=== PATIENT | female | born 1975 | race Two or more races ===

== ENCOUNTER 2020-03-24 11:27 | Inpatient (IN) | payer MEDICAID ==
[~2020-03-24] VITALS: Ht 147.3 cm; Wt 63.0 kg
[2020-03-24 11:36] VITALS: BP 114/72
[2020-03-24] MEDS ORDERED: Morphine Sulfate 4mg/ml Inj (IV USE ONLY) IVP ONE ×2 (11:45→14:00)
[2020-03-24] MEDS ORDERED: Metoclopramide 10mg/2ml Inj IVP ONE (11:45)
[2020-03-24] MEDS ORDERED: DiphenhydrAMINE 50mg/ml Inj IVP ONE (11:45)
[2020-03-24 12:06] LABS: BASOPHILS % (AUTO) 0.6 % (0.0-2.0); EOSINOPHILS % (AUTO) 0.3 % (0.0-3.0); HEMATOCRIT 48.6 % (37.0-47.0); HEMOGLOBIN 16.7 G/DL (12.0-16.0); LYMPHOCYTES % (AUTO) 33.1 % (20.0-45.0); MEAN CORPUSCULAR VOLUME 98 FL (80-99); MONOCYTES % (AUTO) 6.2 % (1.0-10.0); NEUTROPHILS % (AUTO) 59.8 % (45.0-75.0); PLATELET COUNT 228 K/UL (150-450); RED BLOOD COUNT 4.98 M/UL (4.20-5.40); WHITE BLOOD COUNT 11.4 K/UL (4.8-10.8)
[2020-03-24 12:21] LABS: ANION GAP 10 mmol/L (5-15); BLOOD UREA NITROGEN 14 mg/dL (7-18); CALCIUM 9.5 MG/DL (8.5-10.1); CARBON DIOXIDE 25 MMOL/L (21-32); CHLORIDE 102 MMOL/L (98-107); CREATININE 0.9 MG/DL (0.55-1.30); POTASSIUM 3.4 MMOL/L (3.5-5.1); SODIUM 137 MMOL/L (136-145)
[2020-03-24 12:32] LABS: ALANINE AMINOTRANSFERASE 166 U/L (12-78); ALBUMIN 4.3 G/DL (3.4-5.0); ALBUMIN/GLOBULIN RATIO 1.2 (1.0-2.7); ALKALINE PHOSPHATASE 135 U/L (46-116); ASPARTATE AMINO TRANSFERASE 136 U/L (15-37); BILIRUBIN,TOTAL 1.2 MG/DL (0.2-1.0)
[2020-03-24 12:37] LABS: BILIRUBIN,DIRECT 0.6 MG/DL (0.0-0.3)
[2020-03-24] MEDS ORDERED: Cefepime HCl 1 GM in D5W 55 ML IVPB ONE (14:00)
--- NOTE | 2020-03-24 14:05 | Emergency Room Report ---
History of Present Illness General Chief Complaint: Abdominal Pain Source: Patient Present Illness HPI Patient presents with severe right upper quadrant pain radiating to her back. She states she had this problem before and was her gallbladder. She has been nauseated and vomiting. She has no pain medication at home or medicine for nausea. She denies any fevers or chills. The pain is 10/10 at this time and constant. The pain was not as severe during the prior presentation. Social isolating. She denies exposure to Covid positive contacts. No sore throat, chest pain, palpitations, diarrhea, dysuria, shortness of breath, joint pain, rashes, depression, anxiety, visual changes, dizziness, headache. 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 Patient History Past Medical History: see triage record, other - Possible gallbladder disease Social History: Denies: smoking, alcohol use, drug use Social History Narrative From home Now: No Reviewed Nursing Documentation: PMH: Agreed; PSxH: Agreed Nursing Documentation-PMH Past Medical History: No History, Except For Hx Gastrointestinal Problems: Yes - gall bladder Review of Systems All Other Systems: negative except mentioned in HPI Physical Exam Vital Signs Date Time Temp Pulse Resp B/P (MAP) Pulse Ox O2 Delivery O2 Flow Rate FiO2 03/24/20 11:30 97.5 98 18 114/72 (86) 99 Room Air General Appearance: well appearing, GCS 15, non-toxic, moderate distress - Due to pain Eyes: bilateral eye normal inspection, bilateral eye PERRL, bilateral eye EOMI ENT: moist mucus membranes Neck: full range of motion, supple Respiratory: lungs clear, normal breath sounds Cardiovascular #1: regular rate, rhythm, no edema Cardiovascular #2: 2+ radial (R) Gastrointestinal: no rebound, guarding, tenderness - Epigastric and right upper quadrant, overweight Genitourinary: no CVA tenderness Musculoskeletal: back normal, digits/nails normal, no calf tenderness Neurologic: alert, oriented x3, grossly normal Psychiatric: other - In pain Skin: no rash, warm/dry Medical Decision Making Diagnostic Impression: Primary Impression: Acute pancreatitis Qualified Codes: K85.90 - Acute pancreatitis without necrosis or infection, unspecified Additional Impressions: Elevated LFTs Leukocytosis Qualified Codes: D72.828 - Other elevated white blood cell count ER Course Patient presents with right upper quadrant pain with history of gallstones. Differential includes gallstone pancreatitis, cholecystitis, cholangitis, hepatitis peptic ulcer disease amongst others. Patient evaluated with ultrasou nd and labs. Patient treated with IV hydration, Pepcid, Reglan and Benadryl. Repeat exams indicated. Suspicion for COVID-19 low. CBC with elevated white count. Elevated transaminases and bilirubin. Lipase greater than 2000. Ultrasound with peripancreatic free fluid with multiple large gallstones with sludge. Patient improved but still with pain. Cefepime and Flagyl begun. In addition morphine repeated. Contact admitting physician. Patient examined by Dr. Owens. Patient improved. Still etiology of pancreatitis needs to be determined and due to the inflammation of the pancreas this needs to be followed. Laboratory Tests Test 03/24/20 11:45 03/24/20 14:15 White Blood Count 11.4 K/UL (4.8-10.8) H Red Blood Count 4.98 M/UL (4.20-5.40) Hemoglobin 16.7 G/DL (12.0-16.0) H Hematocrit 48.6 % (37.0-47.0) H Mean Corpuscular Volume 98 FL (80-99) Mean Corpuscular Hemoglobin 33.5 PG (27.0-31.0) H Mean Corpuscular Hemoglobin Concent 34.3 G/DL (32.0-36.0) Red Cell Distribution Width 11.0 % (11.6-14.8) L Platelet Count 228 K/UL (150-450) Mean Platelet Volume 9.3 FL (6.5-10.1) Neutrophils (%) (Auto) 59.8 % (45.0-75.0) Lymphocytes (%) (Auto) 33.1 % (20.0-45.0) Monocytes (%) (Auto) 6.2 % (1.0-10.0) Eosinophils (%) (Auto) 0.3 % (0.0-3.0) Basophils (%) (Auto) 0.6 % (0.0-2.0) Prothrombin Time 11.2 SEC (9.30-11.50) Prothrombin Time INR 1.0 (0.9-1.1) Activated Partial Thromboplast Time 26 SEC (23-33) Sodium Level 137 MMOL/L (136-145) Potassium Level 3.4 MMOL/L (3.5-5.1) L Chloride Level 102 MMOL/L (98-107) Carbon Dioxide Level 25 MMOL/L (21-32) Anion Gap 10 mmol/L (5-15) Blood Urea Nitrogen 14 mg/dL (7-18) Creatinine 0.9 MG/DL (0.55-1.30) Estimated Glomerular Filtration Rate > 60 mL/min (>60) Glucose Level 113 MG/DL (74-106) H Calcium Level 9.5 MG/DL (8.5-10.1) Total Bilirubin 1.2 MG/DL (0.2-1.0) H Direct Bilirubin 0.6 MG/DL (0.0-0.3) H Aspartate Amino Transferase (AST) 136 U/L (15-37) H Alanine Aminotransferase (ALT) 166 U/L (12-78) H Alkaline Phosphatase 135 U/L (46-116) H Total Protein 7.9 G/DL (6.4-8.2) Albumin 4.3 G/DL (3.4-5.0) Globulin 3.6 g/dL Albumin/Globulin Ratio 1.2 (1.0-2.7) Lipase > 2000 U/L (73-393) H Human Chorionic Gonadotropin, Qual Negative (NEGATIVE) Urine Color Yellow Urine Appearance Clear Urine pH 5 (4.5-8.0) Urine Specific [place] 1.020 (1.005-1.035) Urine Protein 1+ (NEGATIVE) H Urine Glucose (UA) Negative (NEGATIVE) Urine Ketones Negative (NEGATIVE) Urine Blood Negative (NEGATIVE) Urine Nitrite Negative (NEGATIVE) Urine Bilirubin Negative (NEGATIVE) Urine Urobilinogen Normal MG/DL (0.0-1.0) Urine Leukocyte Esterase Negative (NEGATIVE) Urine RBC 0 /HPF (0 - 2) Urine WBC 0-2 /HPF (0 - 2) Urine Squamous Epithelial Cells Few /LPF (NONE/OCC) Urine Bacteria Few /HPF (NONE) Urine Mucus Few /LPF (NONE/OCC) H Rhythm Strip Diag. Results EP Interpretation: yes Rhythm: NSR, no PVC's, no ectopy CT/MRI/US Diagnostic Results CT/MRI/US Diagnostic Results : Imaging Test Ordered: Ultrasound right upper quadrant Impression Peripancreatic fluid, gallstones with large gallstones and fluid and sludge. Last Vital Signs Date Time Temp Pulse Resp B/P (MAP) Pulse Ox O2 Delivery O2 Flow Rate FiO2 03/24/20 16:39 Room Air 03/24/20 16:30 97.8 89 16 130/85 (100) 99 Status: improved Disposition: ADMITTED INPATIENT Condition: Serious Scripts No Active Prescriptions or Reported Meds Referrals: NOT CHOSEN IPA/,REFERRING (PCP) Wilman Rosado MD Mar 24, 2020 14:05
[2020-03-24 14:44] LABS: APPEARANCE,URINE CLEAR; BILIRUBIN, URINE NEGATIVE (NEGATIVE); GLUCOSE, URINE (UA) NEGATIVE (NEGATIVE); KETONES,URINE NEGATIVE (NEGATIVE); LEUKOCYTE ESTERASE ,URINE NEGATIVE (NEGATIVE); NITRITE,URINE NEGATIVE (NEGATIVE); PH,URINE 5 (4.5-8.0); PROTEIN,URINE 1+ (NEGATIVE); UROBILINOGEN,URINE NORMAL MG/DL (0.0-1.0)
[2020-03-24 14:51] LABS: COLOR,URINE YELLOW
[2020-03-24 16:30] VITALS: BP 130/85
--- NOTE | 2020-03-24 16:31 | Consultation ---
History of Present Illness General Date patient seen: Mar 24, 2020 Reason for Hospitalization: Abdominal Pain Present Illness HPI This is a 44-year-old female presents [facility] complaining of abdominal pain with radiation to the back. States epigastric nominal pain ongo ing for the last 24 hours and worsening. States nausea and emesis nonbloody. States known history of symptomatic cholelithiasis. In ED identified to have leukocytosis abnormal LFTs and elevated lipase. Surgery called to evaluate assist with care. Patient seen, patient evaluate, chart reviewed. Allergies: Coded Allergies: No Known Allergies (Unverified , 03/24/20) COVID-19 Screening Contact w/high risk pt: No Experienced COVID-19 symptoms?: No Medication History No Active Prescriptions or Reported Meds Patient History History Provided By: Patient, Medical Record, PMD Healthcare decision maker N Resuscitation status Advanced Directive on File Past Medical/Surgical History Past Medical/Surgical History: (1) Acute pancreatitis (2) Leukocytosis (3) Elevated LFTs Review of Systems Review of Symptoms General ROS: no weight loss or fever Psychological ROS: no depression or mood changes, no memory loss Ophthalmic ROS: no visual changes or eye irritation ENT ROS: no nasal congestion, hearing loss, dizziness Allergy and Immunology ROS: no allergic symptoms or urticaria Hematological and Lymphatic ROS: no swollen glands, unusual bleeding or bruising Endocrine ROS: no polyuria, polydipsia, weight changes, temperature intolerance Respiratory ROS: no cough, shortness of breath, or wheezing Cardiovascular ROS: no chest pain or dyspnea on exertion Gastrointestinal ROS: + abdominal pain, bright red blood in stool. Musculoskeletal ROS: no myalgias or arthralgias Neurological ROS: no TIA or stroke symptoms Dermatological ROS: no new or changing skin lesions, rashes or pruritis Physical Exam Physical Exam General appearance: alert, cooperative, no distress, appears stated age Head: Normocephalic, without obvious abnormality, atraumatic Eyes: conjunctivae/corneas clear. PERRL, EOM's intact. Fundi benign Throat: Lips, mucosa, and tongue normal. Teeth and gums normal Neck: supple, symmetrical, trachea midline, no adenopathy, thyroid: not enlarged, symmetric, no tenderness/mass/nodules, no carotid bruit and no JVD Lungs: clear to auscultation bilaterally Heart: regular rate and rhythm, S1, S2 normal, no murmur, click, rub or gallop Abdomen: soft, +tender. Bowel sounds normal. No masses, no organomegaly Extremities: extremities normal, atraumatic, no cyanosis or edema Pulses: 2+ and symmetric Skin: Skin color, texture, turgor normal. No rashes or lesions Neurologic: Grossly normal Last 24 Hour Vital Signs Date Time Temp Pulse Resp B/P (MAP) Pulse Ox O2 Delivery O2 Flow Rate FiO2 03/24/20 16:03 98.0 78 18 120/70 98 Room Air 03/24/20 11:36 97.5 98 18 114/72 99 Room Air 03/24/20 11:36 98 18 Room Air 03/24/20 11:30 97.5 98 18 114/72 (86) 99 Room Air Laboratory Tests Test 03/24/20 11:45 03/24/20 14:15 White Blood Count 11.4 K/UL (4.8-10.8) H Red Blood Count 4.98 M/UL (4.20-5.40) Hemoglobin 16.7 G/DL (12.0-16.0) H Hematocrit 48.6 % (37.0-47.0) H Mean Corpuscular Volume 98 FL (80-99) Mean Corpuscular Hemoglobin 33.5 PG (27.0-31.0) H Mean Corpuscular Hemoglobin Concent 34.3 G/DL (32.0-36.0) Red Cell Distribution Width 11.0 % (11.6-14.8) L Platelet Count 228 K/UL (150-450) Mean Platelet Volume 9.3 FL (6.5-10.1) Neutrophils (%) (Auto) 59.8 % (45.0-75.0) Lymphocytes (%) (Auto) 33.1 % (20.0-45.0) Monocytes (%) (Auto) 6.2 % (1.0-10.0) Eosinophils (%) (Auto) 0.3 % (0.0-3.0) Basophils (%) (Auto) 0.6 % (0.0-2.0) Prothrombin Time 11.2 SEC (9.30-11.50) Prothromb Time International Ratio 1.0 (0.9-1.1) Activated Partial Thromboplast Time 26 SEC (23-33) Sodium Level 137 MMOL/L (136-145) Potassium Level 3.4 MMOL/L (3.5-5.1) L Chloride Level 102 MMOL/L (98-107) Carbon Dioxide Level 25 MMOL/L (21-32) Anion Gap 10 mmol/L (5-15) Blood Urea Nitrogen 14 mg/dL (7-18) Creatinine 0.9 MG/DL (0.55-1.30) Estimat Glomerular Filtration Rate > 60 mL/min (>60) Glucose Level 113 MG/DL (74-106) H Calcium Level 9.5 MG/DL (8.5-10.1) Total Bilirubin 1.2 MG/DL (0.2-1.0) H Direct Bilirubin 0.6 MG/DL (0.0-0.3) H Aspartate Amino Transf (AST/SGOT) 136 U/L (15-37) H Alanine Aminotransferase (ALT/SGPT) 166 U/L (12-78) H Alkaline Phosphatase 135 U/L (46-116) H Total Protein 7.9 G/DL (6.4-8.2) Albumin 4.3 G/DL (3.4-5.0) Globulin 3.6 g/dL Albumin/Globulin Ratio 1.2 (1.0-2.7) Lipase > 2000 U/L (73-393) H Human Chorionic Gonadotropin, Qual Negative (NEGATIVE) Urine Color Yellow Urine Appearance Clear Urine pH 5 (4.5-8.0) Urine Specific [place] 1.020 (1.005-1.035) Urine Protein 1+ (NEGATIVE) H Urine Glucose (UA) Negative (NEGATIVE) Urine Ketones Negative (NEGATIVE) Urine Blood Negative (NEGATIVE) Urine Nitrite Negative (NEGATIVE) Urine Bilirubin Negative (NEGATIVE) Urine Urobilinogen Normal MG/DL (0.0-1.0) Urine Leukocyte Esterase Negative (NEGATIVE) Urine RBC 0 /HPF (0 - 2) Urine WBC 0-2 /HPF (0 - 2) Urine Squamous Epithelial Cells Few /LPF (NONE/OCC) Urine Bacteria Few /HPF (NONE) Urine Mucus Few /LPF (NONE/OCC) H Height (Feet): 4 Height (Inches): 11.00 Weight (Pounds): 113 Medications Current Medications Medications (Trade) Dose Ordered Sig/Elizabeth Route PRN Reason Start Time Stop Time Status Last Admin Dose Admin Morphine Sulfate (Morphine Sulfate) 4 mg Q4H PRN IVP For Pain 03/24/20 16:00 03/31/20 15:59 Potassium Chloride/Sodium Chloride 1,000 ml @ 125 mls/hr Q8H IV 03/24/20 17:00 04/23/20 16:59 Assessment/Plan Problem List: (1) Acute pancreatitis Assessment & Plan: 44-year-old female with acute pancreatitis elevated LFTs history of cholelithiasis. Likely acute gallstone pancreatitis. Afebrile hemodynamic stable labs noted. Consideration of possible choledocholithiasis Tender on abdominal examination epigastric region Recommend admission N.p.o. IV fluids IV antibiotics given leukocytosis and potential acute cholecystitis along with acute gallstone pancreatitis Abdominal ultrasound MRCP given elevated bilirubin and LFTs Trend labs May require cholecystectomy Thank you will follow the recommendations ICD Codes: K85.90 - Acute pancreatitis without necrosis or infection, unspecified SNOMED: 515561630, [id number] Qualifiers: Qualified Codes: K85.90 - Acute pancreatitis without necrosis or infection, unspecified (2) Leukocytosis ICD Codes: D72.829 - Elevated white blood cell count, unspecified SNOMED: [id number], [id number] Qualifiers: Qualified Codes: D72.828 - Other elevated white blood cell count (3) Elevated LFTs ICD Codes: R79.89 - Other specified abnormal findings of blood chemistry SNOMED: [id number], [id number] Pedro Luis Owens Mar 24, 2020 16:31
[2020-03-24] MEDS: NS w/KCl 20mEq 1000ml 1,000 ML IV SCH (17:12)
[2020-03-24] MEDS: Morphine Sulfate 4mg/ml Inj (IV USE ONLY) IVP PRN ×2 (17:14→21:25)
--- NOTE | 2020-03-24 17:30 | History and Physical Report ---
DATE OF ADMISSION: 03/24/2020 REASON FOR ADMISSION: Abdominal pain. HISTORY OF PRESENT ILLNESS: This 44-year-old female has a history of cholelithiasis. She has had episodes of pain in the past, but not of significant severity. She presented with midepigastric and right upper quadrant abdominal pain for the past 24 hours, which seems to be worsening and radiating to her back. She was seen in the emergency room and noted to have abnormal laboratory studies which will be described below. She has not been able to eat due to nausea and vomiting of nonbloody emesis and significant abdominal pain. PAST MEDICAL HISTORY: Otherwise unremarkable. MEDICATIONS: None. ALLERGIES: None. SOCIAL HISTORY: Denies smoking, alcohol, or substance abuse. FAMILY HISTORY: Noncontributory. REVIEW OF SYSTEMS: No known exposure to COVID-19 or symptoms suggestive of infection. No fevers or chills. No loss of vision or hearing. No history of kidney stones. No history of seizures. No history of diabetes or thyroid impairment. No elevated cholesterol parameters. No history of hypertension or valvular heart disease. No irregular heartbeat. No history of asthma or abnormal blood clotting. PHYSICAL EXAMINATION: GENERAL: Awake and alert, in moderate distress due to abdominal pain. VITAL SIGNS: Blood pressure 120/70, pulse 78, respirations 18, and afebrile. Oxygen saturation on room air 98%. HEENT: Conjunctivae pink. Oropharynx clear. NECK: Supple. Jugular venous pressure normal. LUNGS: Clear. CARDIAC: Regular rhythm and rate. Normal S1, S2 with no murmur, rub, or gallop. ABDOMEN: Soft. Tenderness noted in the midepigastric region. No guarding or rebound. No organomegaly. SKIN: Without rash or discoloration/ecchymosis. EXTREMITIES: No clubbing, cyanosis, calf tenderness, or edema. NEUROLOGIC: Nonfocal. LABORATORY DATA: White count 11.4, hemoglobin 16.7. INR is 1.0. Sodium 137, potassium 3.4, bicarb 25, BUN 14, creatinine 0.9. Albumin 4.3. AST and ALT is 136/166 with alkaline phosphatase of 135. Beta HCG negative. Urinalysis, no active sediment. Lipase is over 2000. Bilirubin slightly elevated at 1.2. IMAGING STUDIES: Ultrasound of the abdomen is notable for peripancreatic fluid, gallstones with sludge. IMPRESSION: 1. Acute pancreatitis. 2. Cholelithiasis and possible cholecystitis. 3. Leukocytosis. 4. Hypokalemia. 5. Mild hypovolemia and dehydration. 6. Transaminitis. 7. Hyperbilirubinemia. PLAN: 1. NPO. 2. Pain control. 3. IV fluid hydration. 4. Empiric antimicrobials. 5. Surgical evaluation. 6. Serial lab studies. 7. DVT prophylaxis. 8. IV fluid hydration with potassium supplement. Wilman Benjamin M.D. DR: YOSEF JOB#: [id number] CC:
--- NOTE | 2020-03-24 18:01 | Diagnostic Imaging Report ---
Indication: Abdominal pain, abnormal lipase Technique: Pedersen-scale and duplex images of the upper abdomen were obtained Comparison: none Findings: Gallbladder demonstrates gallstones and sludge. No wall thickening nor pericholecystic fluid. Sonographic Ray's sign is negative. Common bile duct measures 6 mm in diameter. No intrahepatic biliary ductal dilatation. Liver demonstrates normal echogenicity, no focal abnormality. Portal vein and hepatic veins are patent. The pancreas is prominent. It demonstrates some adjacent fluid. No focal abnormality. Spleen is unremarkable. Left kidney measures 9.2 cm in length. Right kidney measures 9.3 cm length. Both kidneys demonstrate normal echogenicity. There is no hydronephrosis. No focal abnormality . Non-aneurysmal abdominal aorta . Impression: Prominent pancreas, peripancreatic free fluid, likely related to laboratory evidence of acute pancreatitis Cholelithiasis and gallbladder sludge. Negative for dilated bile ducts. Left upper quadrant perinephric fluid. This is nonspecific, likely related to the pancreatic abnormality
[2020-03-24 20:00] VITALS: BP 128/85
[2020-03-24] MEDS: cefOXitin Sod 1 GM in D5W 55 ML IVPB SCH (21:17)
[2020-03-25] VITALS: BP 108/73
[2020-03-25] MEDS: NS w/KCl 20mEq 1000ml 1,000 ML IV SCH ×3 (01:14→17:58)
[2020-03-25 04:00] VITALS: BP 130/85
[2020-03-25] MEDS: Morphine Sulfate 4mg/ml Inj (IV USE ONLY) IVP PRN ×2 (04:45→11:55)
[2020-03-25] MEDS: cefOXitin Sod 1 GM in D5W 55 ML IVPB SCH ×3 (05:43→22:49)
[2020-03-25] MEDS: Heparin 5000 units/ml inj SUBQ SCH ×3 (05:44→22:51)
[2020-03-25 07:13] LABS: BASOPHILS % (AUTO) 0.4 % (0.0-2.0); EOSINOPHILS % (AUTO) 0.2 % (0.0-3.0); HEMATOCRIT 43.5 % (37.0-47.0); HEMOGLOBIN 14.7 G/DL (12.0-16.0); MEAN CORPUSCULAR VOLUME 98 FL (80-99); MONOCYTES % (AUTO) 9.3 % (1.0-10.0); NEUTROPHILS % (AUTO) 67.2 % (45.0-75.0); PLATELET COUNT 200 K/UL (150-450); RED BLOOD COUNT 4.43 M/UL (4.20-5.40)
[2020-03-25 07:34] LABS: ALANINE AMINOTRANSFERASE 107 U/L (12-78); ALBUMIN 2.9 G/DL (3.4-5.0); ALKALINE PHOSPHATASE 93 U/L (46-116); ASPARTATE AMINO TRANSFERASE 55 U/L (15-37); BLOOD UREA NITROGEN 9 mg/dL (7-18); CARBON DIOXIDE 23 MMOL/L (21-32); CHLORIDE 107 MMOL/L (98-107); CHOLESTEROL 149 MG/DL (< 200); CREATININE 0.8 MG/DL (0.55-1.30); HDL CHOLESTEROL 42 MG/DL (40-60); SODIUM 137 MMOL/L (136-145); TRIGLYCERIDES 72 MG/DL (30-150)
[2020-03-25 07:56] LABS: BILIRUBIN,DIRECT 1.9 MG/DL (0.0-0.3)
[2020-03-25 08:00] VITALS: BP 121/80
[2020-03-25 08:00] LABS: AMYLASE 1729 U/L (25-115)
[2020-03-25] MEDS: Morphine Sulfate 2mg/ml Inj(IV/IM USE ONLY) IVP PRN (08:16)
[2020-03-25 12:00] VITALS: BP 118/80
--- NOTE | 2020-03-25 13:34 | Surgery Progress Note ---
Surgery Progress Note Subjective Symptoms: pain same, voiding well, passing flatus Additional Comments labs noted still with pain US reviewed will need MRCP and potentially ERCP GI eval Objective Last 24 Hour Vital Signs Date Time Temp Pulse Resp B/P (MAP) Pulse Ox O2 Delivery O2 Flow Rate FiO2 03/25/20 12:00 98.3 75 16 118/80 (93) 98 03/25/20 09:00 Room Air 03/25/20 08:00 98.4 79 16 121/80 (94) 97 03/25/20 04:00 98.2 74 17 130/85 (100) 98 03/25/20 00:00 97.8 85 15 108/73 (85) 98 03/24/20 20:15 Room Air 03/24/20 20:00 98.4 91 16 128/85 (99) 98 03/24/20 16:39 Room Air 03/24/20 16:30 97.8 89 16 130/85 (100) 99 03/24/20 16:03 98.0 78 18 120/70 98 Room Air I&O Intake and Output 03/24/20 03/25/20 19:00 07:00 Intake Total 125 ml 1375 ml Output Total 0 ml Balance 125 ml 1375 ml Intake Oral 0 ml IV Total 125 ml 1375 ml Output Urine Total 0 ml # Voids 3 Cardiovascular: RSR Respiratory: clear Abdomen: soft, tenderness, present bowel sounds, non-distended Extremities: no edema, no tenderness, no cyanosis Laboratory Tests Test 03/24/20 14:15 03/25/20 05:10 Urine Color Yellow Urine Appearance Clear Urine pH 5 (4.5-8.0) Urine Specific [place] 1.020 (1.005-1.035) Urine Protein 1+ (NEGATIVE) H Urine Glucose (UA) Negative (NEGATIVE) Urine Ketones Negative (NEGATIVE) Urine Blood Negative (NEGATIVE) Urine Nitrite Negative (NEGATIVE) Urine Bilirubin Negative (NEGATIVE) Urine Urobilinogen Normal MG/DL (0.0-1.0) Urine Leukocyte Esterase Negative (NEGATIVE) Urine RBC 0 /HPF (0 - 2) Urine WBC 0-2 /HPF (0 - 2) Urine Squamous Epithelial Cells Few /LPF (NONE/OCC) Urine Bacteria Few /HPF (NONE) Urine Mucus Few /LPF (NONE/OCC) H White Blood Count 9.0 K/UL (4.8-10.8) Red Blood Count 4.43 M/UL (4.20-5.40) Hemoglobin 14.7 G/DL (12.0-16.0) Hematocrit 43.5 % (37.0-47.0) Mean Corpuscular Volume 98 FL (80-99) Mean Corpuscular Hemoglobin 33.2 PG (27.0-31.0) H Mean Corpuscular Hemoglobin Concent 33.9 G/DL (32.0-36.0) Red Cell Distribution Width 11.0 % (11.6-14.8) L Platelet Count 200 K/UL (150-450) Mean Platelet Volume 9.4 FL (6.5-10.1) Neutrophils (%) (Auto) 67.2 % (45.0-75.0) Lymphocytes (%) (Auto) 23.0 % (20.0-45.0) Monocytes (%) (Auto) 9.3 % (1.0-10.0) Eosinophils (%) (Auto) 0.2 % (0.0-3.0) Basophils (%) (Auto) 0.4 % (0.0-2.0) Erythrocyte Sedimentation Rate 13 MM/HR (0-20) Prothrombin Time 11.3 SEC (9.30-11.50) Prothromb Time International Ratio 1.0 (0.9-1.1) Activated Partial Thromboplast Time 29 SEC (23-33) Sodium Level 137 MMOL/L (136-145) Potassium Level 4.0 MMOL/L (3.5-5.1) Chloride Level 107 MMOL/L (98-107) Carbon Dioxide Level 23 MMOL/L (21-32) Blood Urea Nitrogen 9 mg/dL (7-18) Creatinine 0.8 MG/DL (0.55-1.30) Estimat Glomerular Filtration Rate > 60 mL/min (>60) Glucose Level 91 MG/DL (74-106) Calcium Level 8.0 MG/DL (8.5-10.1) L Total Bilirubin 3.0 MG/DL (0.2-1.0) H Direct Bilirubin 1.9 MG/DL (0.0-0.3) H Aspartate Amino Transf (AST/SGOT) 55 U/L (15-37) H Alanine Aminotransferase (ALT/SGPT) 107 U/L (12-78) H Alkaline Phosphatase 93 U/L (46-116) C-Reactive Protein, Quantitative 2.8 mg/dL (0.00-0.90) H Total Protein 5.7 G/DL (6.4-8.2) L Albumin 2.9 G/DL (3.4-5.0) L Globulin 2.8 g/dL Albumin/Globulin Ratio 1.0 (1.0-2.7) Triglycerides Level 72 MG/DL (30-150) Cholesterol Level 149 MG/DL (< 200) LDL Cholesterol 105 mg/dL (<100) H HDL Cholesterol 42 MG/DL (40-60) Cholesterol/HDL Ratio 3.5 (3.3-4.4) Amylase Level 1729 U/L (25-115) *H Lipase 8198 U/L (73-393) H Plan Problems: (1) Acute pancreatitis Assessment & Plan: 44-year-old female with acute pancreatitis elevated LFTs history of cholelithiasis. Likely acute gallstone pancreatitis. Afebrile hemodynamic stable labs noted. Consideration of possible choledocholithiasis Tender on abdominal examination epigastric region Recommend admission N.p.o. IV fluids IV antibiotics given leukocytosis and potential acute cholecystitis along with acute gallstone pancreatitis Abdominal ultrasound MRCP given elevated bilirubin and LFTs Trend labs May require cholecystectomy labs noted still with pain US reviewed will need MRCP and potentially ERCP GI eval cont bowel rest trend labs Thank you will follow the recommendations (2) Leukocytosis (3) Elevated LFTs Pedro Luis Owens Mar 25, 2020 13:34
[2020-03-25 16:00] VITALS: BP 141/78
--- NOTE | 2020-03-25 19:09 | Cardiology Progress Note ---
Subjective DATE OF SERVICE: Mar 25, 2020 Still with N/V/Abdominal pain No SOB Labs noted Objective Last 24 Hour Vital Signs Date Time Temp Pulse Resp B/P (MAP) Pulse Ox O2 Delivery O2 Flow Rate FiO2 03/25/20 16:00 97.5 83 16 141/78 (99) 98 03/25/20 12:00 98.3 75 16 118/80 (93) 98 03/25/20 09:00 Room Air 03/25/20 08:00 98.4 79 16 121/80 (94) 97 03/25/20 04:00 98.2 74 17 130/85 (100) 98 03/25/20 00:00 97.8 85 15 108/73 (85) 98 03/24/20 20:15 Room Air 03/24/20 20:00 98.4 91 16 128/85 (99) 98 HEENT: normal ENT inspection LUNGS: lungs clear bilaterally CARDIAC: regular rhythm ABDOMEN: normal bowel sounds, soft, distended, tender - Mid epigastric and upper quads EXTREMITIES: No edema Laboratory Tests Test 03/25/20 05:10 White Blood Count 9.0 K/UL (4.8-10.8) Red Blood Count 4.43 M/UL (4.20-5.40) Hemoglobin 14.7 G/DL (12.0-16.0) Hematocrit 43.5 % (37.0-47.0) Mean Corpuscular Volume 98 FL (80-99) Mean Corpuscular Hemoglobin 33.2 PG (27.0-31.0) H Mean Corpuscular Hemoglobin Concent 33.9 G/DL (32.0-36.0) Red Cell Distribution Width 11.0 % (11.6-14.8) L Platelet Count 200 K/UL (150-450) Mean Platelet Volume 9.4 FL (6.5-10.1) Neutrophils (%) (Auto) 67.2 % (45.0-75.0) Lymphocytes (%) (Auto) 23.0 % (20.0-45.0) Monocytes (%) (Auto) 9.3 % (1.0-10.0) Eosinophils (%) (Auto) 0.2 % (0.0-3.0) Basophils (%) (Auto) 0.4 % (0.0-2.0) Erythrocyte Sedimentation Rate 13 MM/HR (0-20) Prothrombin Time 11.3 SEC (9.30-11.50) Prothromb Time International Ratio 1.0 (0.9-1.1) Activated Partial Thromboplast Time 29 SEC (23-33) Sodium Level 137 MMOL/L (136-145) Potassium Level 4.0 MMOL/L (3.5-5.1) Chloride Level 107 MMOL/L (98-107) Carbon Dioxide Level 23 MMOL/L (21-32) Blood Urea Nitrogen 9 mg/dL (7-18) Creatinine 0.8 MG/DL (0.55-1.30) Estimat Glomerular Filtration Rate > 60 mL/min (>60) Glucose Level 91 MG/DL (74-106) Calcium Level 8.0 MG/DL (8.5-10.1) L Total Bilirubin 3.0 MG/DL (0.2-1.0) H Direct Bilirubin 1.9 MG/DL (0.0-0.3) H Aspartate Amino Transf (AST/SGOT) 55 U/L (15-37) H Alanine Aminotransferase (ALT/SGPT) 107 U/L (12-78) H Alkaline Phosphatase 93 U/L (46-116) C-Reactive Protein, Quantitative 2.8 mg/dL (0.00-0.90) H Total Protein 5.7 G/DL (6.4-8.2) L Albumin 2.9 G/DL (3.4-5.0) L Globulin 2.8 g/dL Albumin/Globulin Ratio 1.0 (1.0-2.7) Triglycerides Level 72 MG/DL (30-150) Cholesterol Level 149 MG/DL (< 200) LDL Cholesterol 105 mg/dL (<100) H HDL Cholesterol 42 MG/DL (40-60) Cholesterol/HDL Ratio 3.5 (3.3-4.4) Amylase Level 1729 U/L (25-115) *H Lipase 8198 U/L (73-393) H Assessment/Plan Assessment/Plan Acute biliary pancreatitis Dehydration/hypovolemia Transaminitis Hyperbilirubinemia Cholelithiasis NPO Empiric antibiotics Pain control IVF hydration GI and Surgery consults DVT propyl Wilman Benjamin MD Mar 25, 2020 19:09
[2020-03-26] MEDS: NS w/KCl 20mEq 1000ml 1,000 ML IV SCH (02:34)
[2020-03-26 04:00] VITALS: BP 110/62
[2020-03-26] MEDS: cefOXitin Sod 1 GM in D5W 55 ML IVPB SCH ×3 (06:14→21:06)
[2020-03-26] MEDS: Heparin 5000 units/ml inj SUBQ SCH ×3 (06:22→21:18)
[2020-03-26 06:49] LABS: BASOPHILS % (AUTO) 0.6 % (0.0-2.0); EOSINOPHILS % (AUTO) 0.3 % (0.0-3.0); HEMATOCRIT 43.9 % (37.0-47.0); HEMOGLOBIN 14.7 G/DL (12.0-16.0); LYMPHOCYTES % (AUTO) 18.7 % (20.0-45.0); MEAN CORPUSCULAR VOLUME 99 FL (80-99); MONOCYTES % (AUTO) 7.9 % (1.0-10.0); NEUTROPHILS % (AUTO) 72.5 % (45.0-75.0); PLATELET COUNT 204 K/UL (150-450); RED BLOOD COUNT 4.44 M/UL (4.20-5.40); RED CELL DISTRIBUTION WIDTH 11.2 % (11.6-14.8); WHITE BLOOD COUNT 9.9 K/UL (4.8-10.8)
[2020-03-26 07:19] LABS: ALANINE AMINOTRANSFERASE 84 U/L (12-78); ALBUMIN 3.1 G/DL (3.4-5.0); ALBUMIN/GLOBULIN RATIO 0.8 (1.0-2.7); ALKALINE PHOSPHATASE 94 U/L (46-116); ANION GAP 11 mmol/L (5-15); ASPARTATE AMINO TRANSFERASE 31 U/L (15-37); BILIRUBIN,TOTAL 1.1 MG/DL (0.2-1.0); BLOOD UREA NITROGEN 9 mg/dL (7-18); CALCIUM 8.6 MG/DL (8.5-10.1); CARBON DIOXIDE 21 MMOL/L (21-32); CHLORIDE 104 MMOL/L (98-107); CREATININE 0.8 MG/DL (0.55-1.30); POTASSIUM 4.2 MMOL/L (3.5-5.1); SODIUM 136 MMOL/L (136-145)
[2020-03-26 07:40] LABS: AMYLASE 834 U/L (25-115)
[2020-03-26 07:41] LABS: BILIRUBIN,DIRECT 0.3 MG/DL (0.0-0.3)
[2020-03-26 08:00] VITALS: BP 106/71
[2020-03-26] MEDS ORDERED: D5NS w/KCl 40mEq 1000ml 1,000 ML IV SCH (09:00)
[2020-03-26 12:00] VITALS: BP 128/81
[2020-03-26] MEDS ORDERED: Gadavist 7.5mMol/7.5ml vial IV PRN (12:15)
--- NOTE | 2020-03-26 12:22 | General Progress Note ---
Subjective Allergies: Coded Allergies: No Known Allergies (Unverified , 03/24/20) Objective Last 24 Hour Vital Signs Date Time Temp Pulse Resp B/P (MAP) Pulse Ox O2 Delivery O2 Flow Rate FiO2 03/26/20 08:00 98.5 87 16 106/71 (83) 96 03/26/20 04:00 98.5 77 17 110/62 (78) 97 03/25/20 21:00 Room Air 03/25/20 16:00 97.5 83 16 141/78 (99) 98 Intake and Output 03/25/20 03/26/20 19:00 07:00 Intake Total 1125 ml Balance 1125 ml IV Total 1125 ml # Voids 3 3 Laboratory Tests 03/26/20 05:00: White Blood Count 9.9, Red Blood Count 4.44, Hemoglobin 14.7, Hematocrit 43.9, Mean Corpuscular Volume 99, Mean Corpuscular Hemoglobin 33.1H, Mean Corpuscular Hemoglobin Concent 33.5, Red Cell Distribution Width 11.2L, Platelet Count 204, Mean Platelet Volume 9.4, Neutrophils (%) (Auto) 72.5, Lymphocytes (%) (Auto) 18.7L, Monocytes (%) (Auto) 7.9, Eosinophils (%) (Auto) 0.3, Basophils (%) (Auto) 0.6, Sodium Level 136, Potassium Level 4.2, Chloride Level 104, Carbon Dioxide Level 21, Anion Gap 11, Blood Urea Nitrogen 9, Creatinine 0.8, Estimat Glomerular Filtration Rate > 60, Glucose Level 58L, Calcium Level 8.6, Total Bilirubin 1.1H, Direct Bilirubin 0.3, Aspartate Amino Transf (AST/SGOT) 31, Alanine Aminotransferase (ALT/SGPT) 84H, Alkaline Phosphatase 94, Total Protein 6.8, Albumin 3.1L, Globulin 3.7, Albumin/Globulin Ratio 0.8L, Amylase Level 834*H, Lipase > 2000H Height (Feet): 4 Height (Inches): 11.00 Weight (Pounds): 113 Assessment/Plan Assessment/Plan: Assessment - Cholelithiasis - Gallstone pancreatitis - h/o biliary colic Recommendations - NPO - IVF - Follow labs - MRCP in am - follow labs and exam - surgical follow up Thank you P Jazmín Ivory MD Mar 26, 2020 12:22
[2020-03-26 16:00] VITALS: BP 128/76
--- NOTE | 2020-03-26 19:04 | Surgery Progress Note ---
Surgery Progress Note Subjective Symptoms: improved, passing flatus, pain decreased Objective Last 24 Hour Vital Signs Date Time Temp Pulse Resp B/P (MAP) Pulse Ox O2 Delivery O2 Flow Rate FiO2 03/26/20 16:00 98.3 97 18 128/76 (93) 96 03/26/20 12:00 98.3 103 16 128/81 (97) 100 03/26/20 09:00 Room Air 03/26/20 08:00 98.5 87 16 106/71 (83) 96 03/26/20 04:00 98.5 77 17 110/62 (78) 97 03/25/20 21:00 Room Air I&O Intake and Output 03/25/20 03/26/20 19:00 07:00 Intake Total 1125 ml 125 ml Balance 1125 ml 125 ml IV Total 1125 ml 125 ml # Voids 3 3 Cardiovascular: RSR Respiratory: clear Abdomen: soft, flat, non-tender, present bowel sounds Extremities: no edema, no tenderness, no cyanosis Laboratory Tests Test 03/26/20 05:00 White Blood Count 9.9 K/UL (4.8-10.8) Red Blood Count 4.44 M/UL (4.20-5.40) Hemoglobin 14.7 G/DL (12.0-16.0) Hematocrit 43.9 % (37.0-47.0) Mean Corpuscular Volume 99 FL (80-99) Mean Corpuscular Hemoglobin 33.1 PG (27.0-31.0) H Mean Corpuscular Hemoglobin Concent 33.5 G/DL (32.0-36.0) Red Cell Distribution Width 11.2 % (11.6-14.8) L Platelet Count 204 K/UL (150-450) Mean Platelet Volume 9.4 FL (6.5-10.1) Neutrophils (%) (Auto) 72.5 % (45.0-75.0) Lymphocytes (%) (Auto) 18.7 % (20.0-45.0) L Monocytes (%) (Auto) 7.9 % (1.0-10.0) Eosinophils (%) (Auto) 0.3 % (0.0-3.0) Basophils (%) (Auto) 0.6 % (0.0-2.0) Sodium Level 136 MMOL/L (136-145) Potassium Level 4.2 MMOL/L (3.5-5.1) Chloride Level 104 MMOL/L (98-107) Carbon Dioxide Level 21 MMOL/L (21-32) Anion Gap 11 mmol/L (5-15) Blood Urea Nitrogen 9 mg/dL (7-18) Creatinine 0.8 MG/DL (0.55-1.30) Estimat Glomerular Filtration Rate > 60 mL/min (>60) Glucose Level 58 MG/DL (74-106) L Calcium Level 8.6 MG/DL (8.5-10.1) Total Bilirubin 1.1 MG/DL (0.2-1.0) H Direct Bilirubin 0.3 MG/DL (0.0-0.3) Aspartate Amino Transf (AST/SGOT) 31 U/L (15-37) Alanine Aminotransferase (ALT/SGPT) 84 U/L (12-78) H Alkaline Phosphatase 94 U/L (46-116) Total Protein 6.8 G/DL (6.4-8.2) Albumin 3.1 G/DL (3.4-5.0) L Globulin 3.7 g/dL Albumin/Globulin Ratio 0.8 (1.0-2.7) L Amylase Level 834 U/L (25-115) *H Lipase > 2000 U/L (73-393) H Plan Problems: (1) Acute pancreatitis Assessment & Plan: 44-year-old female with acute pancreatitis elevated LFTs history of cholelithiasis. Likely acute gallstone pancreatitis. Afebrile hemodynamic stable labs noted. Consideration of possible choledocholithiasis Tender on abdominal examination epigastric region Recommend admission N.p.o. IV fluids IV antibiotics given leukocytosis and potential acute cholecystitis along with acute gallstone pancreatitis Abdominal ultrasound MRCP given elevated bilirubin and LFTs Trend labs May require cholecystectomy labs noted still with pain US reviewed will need MRCP and potentially ERCP GI eval cont bowel rest trend labs Thank you will follow the recommendations (2) Leukocytosis (3) Elevated LFTs Pedro Luis Owens Mar 26, 2020 19:03
[2020-03-26 20:00] VITALS: BP 112/77
--- NOTE | 2020-03-26 21:00 | Consultation ---
DATE OF CONSULTATION: 03/26/2020 GASTROENTEROLOGY CONSULTATION CONSULTING PHYSICIAN: Jazmín Cortez MD CHIEF COMPLAINT: I was asked to see this patient for evaluation of pancreatitis. HISTORY OF PRESENT ILLNESS: The patient is a 44-year-old woman who has been noted postprandial epigastric abdominal pain for about 6 months especially with heavy meals. She states her symptoms started in September and she has had three major attacks. One of them resulted in hospitalization at [facility] in [place]. She recovered and was discharged. She was told she had gallstones. Now, she comes in with another attack for about 3 days prior to admission with severe abdominal pain, nausea, and vomiting, and severe pancreatitis, which is improving and also liver tests, which have been elevated and they are also improving. Gallbladder ultrasound is showing gallstones. PAST MEDICAL HISTORY: Otherwise unremarkable. FAMILY HISTORY: Noncontributory. SOCIAL HISTORY: Patient is , although she states she is undergoing divorce. She has one baby girl. She does not smoke or drink alcohol. REVIEW OF SYSTEMS: Otherwise negative. MEDICATIONS: None. PHYSICAL EXAMINATION: GENERAL: Well-developed, well-nourished woman, seen in her room. HEENT: Normocephalic, atraumatic. Sclerae anicteric. Oropharynx is clear. NECK: Supple. CHEST: Clear to auscultation. CARDIAC: Revealed a regular rate. ABDOMEN: Soft with tenderness in the epigastric and left lower quadrant area without guarding or rebound. EXTREMITIES: Revealed no edema. LABORATORY DATA: Noted. ASSESSMENT: This patient presents with acute pancreatitis, due to gallstone in origin since she does have a documented history of cholelithiasis and no alcohol history. Since she has had recurrent attacks and also biliary colic, she would be a candidate for cholecystectomy. Given the degree of pancreatitis and weakness will be done tomorrow to evaluate common bile duct stone. In the meantime, she will be observed to recovery. Surgical consultation has been obtained and is already following this patient. RECOMMENDATIONS: Per above discussion and per orders written in the chart. Thank you for asking me to participate in the care of this patient. Jazmín Cortez M.D. DR: Jessica JOB#: [id number] CC: JEROD
--- NOTE | 2020-03-27 03:14 | Cardiology Progress Note ---
Subjective DATE OF SERVICE: Mar 26, 2020 Still with N/V/Abdominal pain No SOB Labs noted Objective Last 24 Hour Vital Signs Date Time Temp Pulse Resp B/P (MAP) Pulse Ox O2 Delivery O2 Flow Rate FiO2 03/26/20 21:00 Room Air 03/26/20 20:00 98.4 88 17 112/77 (89) 96 03/26/20 16:00 98.3 97 18 128/76 (93) 96 03/26/20 12:00 98.3 103 16 128/81 (97) 100 03/26/20 09:00 Room Air 03/26/20 08:00 98.5 87 16 106/71 (83) 96 03/26/20 04:00 98.5 77 17 110/62 (78) 97 HEENT: normal ENT inspection LUNGS: lungs clear bilaterally CARDIAC: regular rhythm ABDOMEN: normal bowel sounds, soft, distended, tender - Mid epigastric and upper quads EXTREMITIES: No edema Laboratory Tests Test 03/26/20 05:00 White Blood Count 9.9 K/UL (4.8-10.8) Red Blood Count 4.44 M/UL (4.20-5.40) Hemoglobin 14.7 G/DL (12.0-16.0) Hematocrit 43.9 % (37.0-47.0) Mean Corpuscular Volume 99 FL (80-99) Mean Corpuscular Hemoglobin 33.1 PG (27.0-31.0) H Mean Corpuscular Hemoglobin Concent 33.5 G/DL (32.0-36.0) Red Cell Distribution Width 11.2 % (11.6-14.8) L Platelet Count 204 K/UL (150-450) Mean Platelet Volume 9.4 FL (6.5-10.1) Neutrophils (%) (Auto) 72.5 % (45.0-75.0) Lymphocytes (%) (Auto) 18.7 % (20.0-45.0) L Monocytes (%) (Auto) 7.9 % (1.0-10.0) Eosinophils (%) (Auto) 0.3 % (0.0-3.0) Basophils (%) (Auto) 0.6 % (0.0-2.0) Sodium Level 136 MMOL/L (136-145) Potassium Level 4.2 MMOL/L (3.5-5.1) Chloride Level 104 MMOL/L (98-107) Carbon Dioxide Level 21 MMOL/L (21-32) Anion Gap 11 mmol/L (5-15) Blood Urea Nitrogen 9 mg/dL (7-18) Creatinine 0.8 MG/DL (0.55-1.30) Estimat Glomerular Filtration Rate > 60 mL/min (>60) Glucose Level 58 MG/DL (74-106) L Calcium Level 8.6 MG/DL (8.5-10.1) Total Bilirubin 1.1 MG/DL (0.2-1.0) H Direct Bilirubin 0.3 MG/DL (0.0-0.3) Aspartate Amino Transf (AST/SGOT) 31 U/L (15-37) Alanine Aminotransferase (ALT/SGPT) 84 U/L (12-78) H Alkaline Phosphatase 94 U/L (46-116) Total Protein 6.8 G/DL (6.4-8.2) Albumin 3.1 G/DL (3.4-5.0) L Globulin 3.7 g/dL Albumin/Globulin Ratio 0.8 (1.0-2.7) L Amylase Level 834 U/L (25-115) *H Lipase > 2000 U/L (73-393) H Assessment/Plan Assessment/Plan Acute biliary pancreatitis Dehydration/hypovolemia Transaminitis Hyperbilirubinemia Cholelithiasis NPO Empiric antibiotics Pain control IVF hydration DVT propyl MRCP tomorrow Wilman Benjamin MD Mar 27, 2020 03:14
[2020-03-27 04:00] VITALS: BP 110/66
[2020-03-27] MEDS: cefOXitin Sod 1 GM in D5W 55 ML IVPB SCH ×3 (06:00→21:21)
[2020-03-27] MEDS: Heparin 5000 units/ml inj SUBQ SCH ×3 (06:00→21:22)
[2020-03-27 06:15] LABS: BASOPHILS % (AUTO) 0.7 % (0.0-2.0); EOSINOPHILS % (AUTO) 0.7 % (0.0-3.0); HEMATOCRIT 41.1 % (37.0-47.0); LYMPHOCYTES % (AUTO) 22.4 % (20.0-45.0); MEAN CORPUSCULAR VOLUME 97 FL (80-99); MONOCYTES % (AUTO) 9.6 % (1.0-10.0); NEUTROPHILS % (AUTO) 66.7 % (45.0-75.0); PLATELET COUNT 198 K/UL (150-450); RED BLOOD COUNT 4.23 M/UL (4.20-5.40); RED CELL DISTRIBUTION WIDTH 11.1 % (11.6-14.8); WHITE BLOOD COUNT 8.9 K/UL (4.8-10.8)
[2020-03-27 06:43] LABS: ALANINE AMINOTRANSFERASE 65 U/L (12-78); ALBUMIN/GLOBULIN RATIO 0.8 (1.0-2.7); ALKALINE PHOSPHATASE 87 U/L (46-116); ASPARTATE AMINO TRANSFERASE 14 U/L (15-37); BILIRUBIN,TOTAL 0.8 MG/DL (0.2-1.0); BLOOD UREA NITROGEN 5 mg/dL (7-18); CALCIUM 8.5 MG/DL (8.5-10.1); CARBON DIOXIDE 22 MMOL/L (21-32); CHLORIDE 105 MMOL/L (98-107); CREATININE 0.9 MG/DL (0.55-1.30); SODIUM 136 MMOL/L (136-145)
[2020-03-27 08:00] VITALS: BP 105/69
--- NOTE | 2020-03-27 09:57 | General Progress Note ---
Subjective ROS Limited/Unobtainable: Yes Allergies: Coded Allergies: No Known Allergies (Unverified , 03/24/20) Objective Last 24 Hour Vital Signs Date Time Temp Pulse Resp B/P (MAP) Pulse Ox O2 Delivery O2 Flow Rate FiO2 03/27/20 08:00 98.1 82 16 105/69 (81) 100 03/27/20 07:48 Room Air 03/27/20 04:00 98.8 90 18 110/66 (81) 97 03/26/20 21:00 Room Air 03/26/20 20:00 98.4 88 17 112/77 (89) 96 03/26/20 16:00 98.3 97 18 128/76 (93) 96 03/26/20 12:00 98.3 103 16 128/81 (97) 100 Intake and Output 03/26/20 03/27/20 19:00 07:00 Intake Total 1250 ml Balance 1250 ml IV Total 1250 ml # Voids 4 2 # Bowel Movements 2 Laboratory Tests 03/27/20 05:10: White Blood Count 8.9, Red Blood Count 4.23, Hemoglobin 14.0, Hematocrit 41.1, Mean Corpuscular Volume 97, Mean Corpuscular Hemoglobin 33.0H, Mean Corpuscular Hemoglobin Concent 33.9, Red Cell Distribution Width 11.1L, Platelet Count 198, Mean Platelet Volume 9.4, Neutrophils (%) (Auto) 66.7, Lymphocytes (%) (Auto) 22.4, Monocytes (%) (Auto) 9.6, Eosinophils (%) (Auto) 0.7, Basophils (%) (Auto) 0.7, Sodium Level 136, Potassium Level 4.0, Chloride Level 105, Carbon Dioxide Level 22, Blood Urea Nitrogen 5L, Creatinine 0.9, Estimat Glomerular Filtration Rate > 60, Glucose Level 138H, Calcium Level 8.5, Total Bilirubin 0.8, Aspartate Amino Transf (AST/SGOT) 14L, Alanine Aminotransferase (ALT/SGPT) 65, Alkaline Phosphatase 87, Total Protein 7.0, Albumin 3.0L, Globulin 4.0, Albumin/Globulin Ratio 0.8L, Amylase Level 354H, Lipase 1484H Height (Feet): 4 Height (Inches): 11.00 Weight (Pounds): 113 General Appearance: alert EENT: normal ENT inspection Neck: normal alignment Cardiovascular: normal rate Respiratory/Chest: decreased breath sounds Abdomen: hypoactive bowel sounds, tender Extremities: non-tender Assessment/Plan Assessment/Plan: Assessment - Cholelithiasis - Gallstone pancreatitis - h/o biliary colic Recommendations - NPO - IVF - Follow labs - MRCP pending -? passed stone -ERCP tomorrow if needed - follow labs and exam - surgical follow up Wayne Cintron MD Mar 27, 2020 09:57
[2020-03-27 12:00] VITALS: BP 119/75
--- NOTE | 2020-03-27 15:43 | Diagnostic Imaging Report ---
Indication: Reason For Exam: ABD PAIN Technique: Axial single shot fast spin echo breath hold, coronal single shot fast spin-echo breath hold, axial T2 FRFSE fat-saturated, 2-D thick slab MRCP, axial 2-D FIESTA fat-saturated, axial 3-D dual echo breath-hold, precontrast axial and postcontrast axial and coronal water weighted axial LAVA FLEX images of the abdomen Comparison: No comparison MRI. Reference made to sonogram dated 03/24/2020 Findings: The gallbladder contains gallstones. The gallbladder wall appears thickened and edematous. The bile ducts are nondilated, and no filling defects are demonstrated. The pancreas is somewhat prominent in size. Fluid is seen adjacent to the tail of the pancreas, within Morison's pouch, and tracking along side both kidneys as well as within the mesenteric root. No focal rim-enhancing fluid collections are demonstrated. The pancreas enhances normally. No pancreatic mass or nodule demonstrated. The liver, kidneys, adrenals, spleen are unremarkable. The bladder is distended. Consolidation is seen at both lung bases. There is suggestion of trace pleural fluid on the left. Edema is seen in the left posterolateral flank soft tissues superficial to the abdominal wall musculature. Impression: Somewhat enlarged pancreas with surrounding fluid/phlegmon, presumably related to stated clinical history of acute pancreatitis. No evidence of pancreatic necrosis or peripancreatic abscess Cholelithiasis. Gallbladder wall edema raises concern for acute cholecystitis. Consider hepatobiliary nuclear scan for further evaluation Negative for evidence of dilated bile ducts or choledocholithiasis Distended bladder Bilateral trace pleural effusions and bilateral basilar atelectasis Left flank edema. Appearance nonspecific as regards etiology. This does not particularly enhance, so not likely due to cellulitis
[2020-03-27 16:00] VITALS: BP 114/81
--- NOTE | 2020-03-27 17:08 | Surgery Progress Note ---
Surgery Progress Note Subjective Additional Comments mrcp noted improved no pain no n/v/fc labs noted plan lap arian tomorrow Objective Last 24 Hour Vital Signs Date Time Temp Pulse Resp B/P (MAP) Pulse Ox O2 Delivery O2 Flow Rate FiO2 03/27/20 16:00 97.4 98 18 114/81 (92) 100 03/27/20 12:00 98.0 80 18 119/75 (90) 100 03/27/20 08:00 98.1 82 16 105/69 (81) 100 03/27/20 07:48 Room Air 03/27/20 04:00 98.8 90 18 110/66 (81) 97 03/26/20 21:00 Room Air 03/26/20 20:00 98.4 88 17 112/77 (89) 96 I&O Intake and Output 03/26/20 03/27/20 19:00 07:00 Intake Total 1250 ml Balance 1250 ml IV Total 1250 ml # Voids 4 2 # Bowel Movements 2 Cardiovascular: RSR Respiratory: clear Abdomen: soft, non-tender, present bowel sounds Extremities: no edema, no tenderness, no cyanosis Laboratory Tests Test 03/27/20 05:10 White Blood Count 8.9 K/UL (4.8-10.8) Red Blood Count 4.23 M/UL (4.20-5.40) Hemoglobin 14.0 G/DL (12.0-16.0) Hematocrit 41.1 % (37.0-47.0) Mean Corpuscular Volume 97 FL (80-99) Mean Corpuscular Hemoglobin 33.0 PG (27.0-31.0) H Mean Corpuscular Hemoglobin Concent 33.9 G/DL (32.0-36.0) Red Cell Distribution Width 11.1 % (11.6-14.8) L Platelet Count 198 K/UL (150-450) Mean Platelet Volume 9.4 FL (6.5-10.1) Neutrophils (%) (Auto) 66.7 % (45.0-75.0) Lymphocytes (%) (Auto) 22.4 % (20.0-45.0) Monocytes (%) (Auto) 9.6 % (1.0-10.0) Eosinophils (%) (Auto) 0.7 % (0.0-3.0) Basophils (%) (Auto) 0.7 % (0.0-2.0) Sodium Level 136 MMOL/L (136-145) Potassium Level 4.0 MMOL/L (3.5-5.1) Chloride Level 105 MMOL/L (98-107) Carbon Dioxide Level 22 MMOL/L (21-32) Blood Urea Nitrogen 5 mg/dL (7-18) L Creatinine 0.9 MG/DL (0.55-1.30) Estimat Glomerular Filtration Rate > 60 mL/min (>60) Glucose Level 138 MG/DL (74-106) H Calcium Level 8.5 MG/DL (8.5-10.1) Total Bilirubin 0.8 MG/DL (0.2-1.0) Aspartate Amino Transf (AST/SGOT) 14 U/L (15-37) L Alanine Aminotransferase (ALT/SGPT) 65 U/L (12-78) Alkaline Phosphatase 87 U/L (46-116) Total Protein 7.0 G/DL (6.4-8.2) Albumin 3.0 G/DL (3.4-5.0) L Globulin 4.0 g/dL Albumin/Globulin Ratio 0.8 (1.0-2.7) L Amylase Level 354 U/L (25-115) H Lipase 1484 U/L (73-393) H Plan Problems: (1) Acute pancreatitis Assessment & Plan: 44-year-old female with acute pancreatitis elevated LFTs history of cholelithiasis. Likely acute gallstone pancreatitis. Afebrile hemodynamic stable labs noted. Consideration of possible choledocholithiasis Tender on abdominal examination epigastric region Recommend admission N.p.o. IV fluids IV antibiotics given leukocytosis and potential acute cholecystitis along with acute gallstone pancreatitis Abdominal ultrasound MRCP given elevated bilirubin and LFTs Trend labs May require cholecystectomy labs noted still with pain US reviewed will need MRCP and potentially ERCP GI eval cont bowel rest trend labs Thank you will follow the recommendations mrcp noted labs improved exam improved plan lap arian (2) Leukocytosis (3) Elevated LFTs Pedro Luis Owens Mar 27, 2020 17:08
--- NOTE | 2020-03-27 17:09 | Pre-Procedure Note/Attestation ---
Pre-Procedure Note/Attestation Complete Prior to Procedure Procedure Narrative: laparoscopic cholecystectomy possible open Indications for Procedure Pre-Operative Diagnosis: acute gallstone pancreatitis Attestation I attest that I discussed the nature of the procedure; its benefits; risks and complications; and alternatives (and the risks and benefits of such alternatives), prior to the procedure, with the patient (or the patient's legal representative phlebotomy services). I attest that, if there was a reasonable possibility of needing a blood transfusion, the patient (or the patient's legal representative phlebotomy services) was given the [facility] standardized written summary, pursuant to the [place] Blood Safety Act ([place] Health and Safety Code # 1645, as amended). I attest that I re-evaluated the patient just prior to the surgery and that there has been no change in the patient's H&P, except as documented below: Pedro Luis Owens Mar 27, 2020 17:09
[2020-03-27 20:00] VITALS: BP 119/80
[2020-03-28] VITALS (13 sets, daily range): BP systolic 105–146; BP diastolic 68–89
--- NOTE | 2020-03-28 00:13 | Cardiology Progress Note ---
Subjective DATE OF SERVICE: Mar 27, 2020 Less N/V/Abdominal pain No SOB Labs and MRCP reviewed and discussed with consultants Objective Last 24 Hour Vital Signs Date Time Temp Pulse Resp B/P (MAP) Pulse Ox O2 Delivery O2 Flow Rate FiO2 03/27/20 16:00 97.4 98 18 114/81 (92) 100 03/27/20 12:00 98.0 80 18 119/75 (90) 100 03/27/20 08:00 98.1 82 16 105/69 (81) 100 03/27/20 07:48 Room Air 03/27/20 04:00 98.8 90 18 110/66 (81) 97 HEENT: normal ENT inspection LUNGS: lungs clear bilaterally CARDIAC: regular rhythm ABDOMEN: normal bowel sounds, soft, distended, tender - Mid epigastric and upper quads EXTREMITIES: No edema Laboratory Tests Test 03/27/20 05:10 White Blood Count 8.9 K/UL (4.8-10.8) Red Blood Count 4.23 M/UL (4.20-5.40) Hemoglobin 14.0 G/DL (12.0-16.0) Hematocrit 41.1 % (37.0-47.0) Mean Corpuscular Volume 97 FL (80-99) Mean Corpuscular Hemoglobin 33.0 PG (27.0-31.0) H Mean Corpuscular Hemoglobin Concent 33.9 G/DL (32.0-36.0) Red Cell Distribution Width 11.1 % (11.6-14.8) L Platelet Count 198 K/UL (150-450) Mean Platelet Volume 9.4 FL (6.5-10.1) Neutrophils (%) (Auto) 66.7 % (45.0-75.0) Lymphocytes (%) (Auto) 22.4 % (20.0-45.0) Monocytes (%) (Auto) 9.6 % (1.0-10.0) Eosinophils (%) (Auto) 0.7 % (0.0-3.0) Basophils (%) (Auto) 0.7 % (0.0-2.0) Sodium Level 136 MMOL/L (136-145) Potassium Level 4.0 MMOL/L (3.5-5.1) Chloride Level 105 MMOL/L (98-107) Carbon Dioxide Level 22 MMOL/L (21-32) Blood Urea Nitrogen 5 mg/dL (7-18) L Creatinine 0.9 MG/DL (0.55-1.30) Estimat Glomerular Filtration Rate > 60 mL/min (>60) Glucose Level 138 MG/DL (74-106) H Calcium Level 8.5 MG/DL (8.5-10.1) Total Bilirubin 0.8 MG/DL (0.2-1.0) Aspartate Amino Transf (AST/SGOT) 14 U/L (15-37) L Alanine Aminotransferase (ALT/SGPT) 65 U/L (12-78) Alkaline Phosphatase 87 U/L (46-116) Total Protein 7.0 G/DL (6.4-8.2) Albumin 3.0 G/DL (3.4-5.0) L Globulin 4.0 g/dL Albumin/Globulin Ratio 0.8 (1.0-2.7) L Amylase Level 354 U/L (25-115) H Lipase 1484 U/L (73-393) H Assessment/Plan Assessment/Plan Acute biliary pancreatitis Dehydration/hypovolemia Transaminitis Hyperbilirubinemia Cholelithiasis NPO Empiric antibiotics Pain control IVF hydration DVT propyl Lap arian tomorrow Wilman Benjamin MD Mar 28, 2020 00:13
[2020-03-28] MEDS: Heparin 5000 units/ml inj SUBQ SCH ×3 (05:33→21:11)
[2020-03-28] MEDS: cefOXitin Sod 1 GM in D5W 55 ML IVPB SCH ×3 (05:34→21:13)
[2020-03-28 05:48] LABS: BASOPHILS % (AUTO) 0.9 % (0.0-2.0); HEMATOCRIT 40.6 % (37.0-47.0); HEMOGLOBIN 13.7 G/DL (12.0-16.0); LYMPHOCYTES % (AUTO) 29.4 % (20.0-45.0); MEAN CORPUSCULAR VOLUME 98 FL (80-99); MONOCYTES % (AUTO) 11.3 % (1.0-10.0); NEUTROPHILS % (AUTO) 57.4 % (45.0-75.0); PLATELET COUNT 204 K/UL (150-450); RED BLOOD COUNT 4.13 M/UL (4.20-5.40); RED CELL DISTRIBUTION WIDTH 11.5 % (11.6-14.8); WHITE BLOOD COUNT 7.8 K/UL (4.8-10.8)
[2020-03-28 05:51] LABS: INR 1.1 (0.9-1.1)
[2020-03-28 06:51] LABS: ALANINE AMINOTRANSFERASE 72 U/L (12-78); ALBUMIN/GLOBULIN RATIO 0.7 (1.0-2.7); ALKALINE PHOSPHATASE 84 U/L (46-116); AMYLASE 211 U/L (25-115); ANION GAP 9 mmol/L (5-15); ASPARTATE AMINO TRANSFERASE 35 U/L (15-37); BILIRUBIN,TOTAL 0.7 MG/DL (0.2-1.0); BLOOD UREA NITROGEN 3 mg/dL (7-18); CALCIUM 8.7 MG/DL (8.5-10.1); CARBON DIOXIDE 23 MMOL/L (21-32); CHLORIDE 106 MMOL/L (98-107); CREATININE 0.8 MG/DL (0.55-1.30); POTASSIUM 4.1 MMOL/L (3.5-5.1); SODIUM 138 MMOL/L (136-145)
--- NOTE | 2020-03-28 06:53 | General Progress Note ---
Subjective ROS Limited/Unobtainable: Yes Allergies: Coded Allergies: No Known Allergies (Unverified , 03/24/20) Objective Last 24 Hour Vital Signs Date Time Temp Pulse Resp B/P (MAP) Pulse Ox O2 Delivery O2 Flow Rate FiO2 03/28/20 04:00 98.0 77 18 106/76 (86) 97 03/28/20 00:00 98.5 84 18 105/68 (80) 97 03/27/20 21:00 Room Air 03/27/20 20:00 98.6 89 18 119/80 (93) 99 03/27/20 16:00 97.4 98 18 114/81 (92) 100 03/27/20 12:00 98.0 80 18 119/75 (90) 100 03/27/20 08:00 98.1 82 16 105/69 (81) 100 03/27/20 07:48 Room Air Intake and Output 03/27/20 03/28/20 19:00 07:00 # Voids 3 Laboratory Tests 03/28/20 05:00: White Blood Count 7.8, Red Blood Count 4.13L, Hemoglobin 13.7, Hematocrit 40.6, Mean Corpuscular Volume 98, Mean Corpuscular Hemoglobin 33.2H, Mean Corpuscular Hemoglobin Concent 33.7, Red Cell Distribution Width 11.5L, Platelet Count 204, Mean Platelet Volume 9.8, Neutrophils (%) (Auto) 57.4, Lymphocytes (%) (Auto) 29.4, Monocytes (%) (Auto) 11.3H, Eosinophils (%) (Auto) 1.0, Basophils (%) (Auto) 0.9, Prothrombin Time 11.7H, Prothromb Time International Ratio 1.1, Activated Partial Thromboplast Time 31, Sodium Level [Pending], Potassium Level [Pending], Chloride Level [Pending], Carbon Dioxide Level [Pending], Blood Urea Nitrogen [Pending], Creatinine [Pending], Estimat Glomerular Filtration Rate [Pending], Glucose Level [Pending], Calcium Level [Pending], Total Bilirubin [Pending], Aspartate Amino Transf (AST/SGOT) [Pending], Alanine Aminotransferase (ALT/SGPT) [Pending], Alkaline Phosphatase [Pending], Total Protein [Pending], Albumin [Pending], Globulin [Pending], Amylase Level [Pending], Lipase [Pending] Height (Feet): 4 Height (Inches): 11.00 Weight (Pounds): 113 General Appearance: alert EENT: normal ENT inspection Neck: supple Cardiovascular: normal rate Respiratory/Chest: decreased breath sounds Extremities: non-tender Assessment/Plan Assessment/Plan: Assessment - Cholelithiasis - Gallstone pancreatitis - h/o biliary colic Recommendations - NPO - IVF - Follow labs - MRCP negative for CBD stones -? passed stone -pending surg for today Wayne Cintron MD Mar 28, 2020 06:53
[2020-03-28] MEDS ORDERED: Bupivacaine 0.25% Inj 30ml INJ ONE (11:55)
[2020-03-28] MEDS ORDERED: Iothalamate Meglumine 60% 50ML INJ ONE (11:55)
[2020-03-28] MEDS ORDERED: EPINEPHrine 1mg/1ml Amp ONE (11:55)
[2020-03-28] MEDS ORDERED: Bacitracin 50000 Units Vial ONE (11:56)
--- NOTE | 2020-03-28 12:22 | Surgery Progress Note ---
Surgery Progress Note Subjective Symptoms: improved Additional Comments or today Objective Last 24 Hour Vital Signs Date Time Temp Pulse Resp B/P (MAP) Pulse Ox O2 Delivery O2 Flow Rate FiO2 03/28/20 09:00 Room Air 03/28/20 08:00 98.4 77 16 118/73 (88) 98 03/28/20 04:00 98.0 77 18 106/76 (86) 97 03/28/20 00:00 98.5 84 18 105/68 (80) 97 03/27/20 21:00 Room Air 03/27/20 20:00 98.6 89 18 119/80 (93) 99 03/27/20 16:00 97.4 98 18 114/81 (92) 100 I&O Intake and Output 03/27/20 03/28/20 19:00 07:00 Intake Total 125 ml Balance 125 ml IV Total 125 ml # Voids 3 Laboratory Tests Test 03/28/20 05:00 03/28/20 07:00 White Blood Count 7.8 K/UL (4.8-10.8) Red Blood Count 4.13 M/UL (4.20-5.40) L Hemoglobin 13.7 G/DL (12.0-16.0) Hematocrit 40.6 % (37.0-47.0) Mean Corpuscular Volume 98 FL (80-99) Mean Corpuscular Hemoglobin 33.2 PG (27.0-31.0) H Mean Corpuscular Hemoglobin Concent 33.7 G/DL (32.0-36.0) Red Cell Distribution Width 11.5 % (11.6-14.8) L Platelet Count 204 K/UL (150-450) Mean Platelet Volume 9.8 FL (6.5-10.1) Neutrophils (%) (Auto) 57.4 % (45.0-75.0) Lymphocytes (%) (Auto) 29.4 % (20.0-45.0) Monocytes (%) (Auto) 11.3 % (1.0-10.0) H Eosinophils (%) (Auto) 1.0 % (0.0-3.0) Basophils (%) (Auto) 0.9 % (0.0-2.0) Prothrombin Time 11.7 SEC (9.30-11.50) H Prothromb Time International Ratio 1.1 (0.9-1.1) Activated Partial Thromboplast Time 31 SEC (23-33) Sodium Level 138 MMOL/L (136-145) Potassium Level 4.1 MMOL/L (3.5-5.1) Chloride Level 106 MMOL/L (98-107) Carbon Dioxide Level 23 MMOL/L (21-32) Anion Gap 9 mmol/L (5-15) Blood Urea Nitrogen 3 mg/dL (7-18) L Creatinine 0.8 MG/DL (0.55-1.30) Estimat Glomerular Filtration Rate > 60 mL/min (>60) Glucose Level 124 MG/DL (74-106) H Calcium Level 8.7 MG/DL (8.5-10.1) Total Bilirubin 0.7 MG/DL (0.2-1.0) Aspartate Amino Transf (AST/SGOT) 35 U/L (15-37) Alanine Aminotransferase (ALT/SGPT) 72 U/L (12-78) Alkaline Phosphatase 84 U/L (46-116) Total Protein 7.3 G/DL (6.4-8.2) Albumin 3.0 G/DL (3.4-5.0) L Globulin 4.3 g/dL Albumin/Globulin Ratio 0.7 (1.0-2.7) L Amylase Level 211 U/L (25-115) H Lipase 1148 U/L (73-393) H Urine HCG, Qualitative Negative (NEGATIVE) Plan Problems: (1) Acute pancreatitis Assessment & Plan: 44-year-old female with acute pancreatitis elevated LFTs history of cholelithiasis. Likely acute gallstone pancreatitis. Afebrile hemodynamic stable labs noted. Consideration of possible choledocholithiasis Tender on abdominal examination epigastric region Recommend admission N.p.o. IV fluids IV antibiotics given leukocytosis and potential acute cholecystitis along with acute gallstone pancreatitis Abdominal ultrasound MRCP given elevated bilirubin and LFTs Trend labs May require cholecystectomy labs noted still with pain US reviewed will need MRCP and potentially ERCP GI eval cont bowel rest trend labs Thank you will follow the recommendations mrcp noted labs improved exam improved plan lap arian (2) Leukocytosis (3) Elevated LFTs Pedro Luis Owens Mar 28, 2020 12:22
[2020-03-28] MEDS ORDERED: LR 1000ml 1,000 ML IVLG SCH (12:30)
[2020-03-28] MEDS ORDERED: Hydromorphone 0.5mg/0.5ml inj IVP PRN (12:30)
[2020-03-28] MEDS ORDERED: HYDROcodone/Acetamin 5/325 tab ORAL PRN (12:30)
[2020-03-28] MEDS ORDERED: fentaNYL 100 mcg/2 mL IV PRN (12:30)
[2020-03-28] MEDS ORDERED: HYDROcodone/Acetamin 7.5/325 tab ORAL PRN (12:30)
[2020-03-28] MEDS ORDERED: oxyCODONE HCL/Acetaminophen 5/325mg ORAL PRN (12:30)
[2020-03-28] MEDS ORDERED: LORazepam Inj 2mg/ml 1ml IV PRN (12:30)
[2020-03-28] MEDS ORDERED: Labetalol 5mg/ml 20ml vial IV PRN (12:30)
[2020-03-28] MEDS ORDERED: Acetaminophen (Non formulary) 100 ML IV ONE (12:30)
[2020-03-28] MEDS ORDERED: Atropine Sulfate 0.4mg/ml inj IVP PRN (12:30)
[2020-03-28] MEDS ORDERED: Meperidine 25mg/1ml Inj (FOR RIGORS ONLY) IV PRN (12:30)
[2020-03-28] MEDS ORDERED: Midazolam 2mg/2ml Inj IVP PRN (12:30)
[2020-03-28] MEDS ORDERED: DiphenhydrAMINE 50mg/ml Inj IVP PRN (12:30)
[2020-03-28] MEDS ORDERED: Metoclopramide 10mg/2ml Inj IVP PRN (12:30)
--- NOTE | 2020-03-28 12:37 | Anethesia Preoperative Eval ---
Anesthesia Pre-op PMH/ROS General Date of Evaluation: Mar 28, 2020 Time of Evaluation: 12:36 Anesthesiologist: Kyle ASA Score: ASA 2 - Emergency Mallampati Score Class I : Soft palate, uvula, fauces, pillars visible Class II: Soft palate, uvula, fauces visible Class III: Soft palate, base of uvula visible Class IV: Only hard plate visible Mallampati Classification: Class II Surgeon: Graciela Diagnosis: Pancreatitis Surgical Procedure: Laparoscopic Cholecystectomy Anesthesia History: none Family History: no anesthesia problems Allergies: Coded Allergies: No Known Allergies (Unverified , 03/24/20) Medications: see eMAR Patient NPO?: Yes Past Medical History Gastrointestinal/Genitourinary: Reports: other - Pancreatitis Other: obesity - BMI32 Anesthesia Pre-op Phys. Exam Physician Exam Last Vital Signs Date Time Temp Pulse Resp B/P (MAP) Pulse Ox O2 Delivery O2 Flow Rate FiO2 03/28/20 09:00 Room Air 03/28/20 08:00 98.4 77 16 118/73 (88) 98 Constitutional: NAD Neurologic: CN 2-12 intact Cardiovascular: RRR Respiratory: CTA Gastrointestinal: S/NT/ND Airway Exam Mallampati Score: Class II MO: full ROM: full Teeth: missing, intact Anesthesia Pre-op A/P Labs Hematology Test 03/28/20 05:00 White Blood Count 7.8 K/UL (4.8-10.8) Red Blood Count 4.13 M/UL (4.20-5.40) L Hemoglobin 13.7 G/DL (12.0-16.0) Hematocrit 40.6 % (37.0-47.0) Mean Corpuscular Volume 98 FL (80-99) Mean Corpuscular Hemoglobin 33.2 PG (27.0-31.0) H Mean Corpuscular Hemoglobin Concent 33.7 G/DL (32.0-36.0) Red Cell Distribution Width 11.5 % (11.6-14.8) L Platelet Count 204 K/UL (150-450) Mean Platelet Volume 9.8 FL (6.5-10.1) Neutrophils (%) (Auto) 57.4 % (45.0-75.0) Lymphocytes (%) (Auto) 29.4 % (20.0-45.0) Monocytes (%) (Auto) 11.3 % (1.0-10.0) H Eosinophils (%) (Auto) 1.0 % (0.0-3.0) Basophils (%) (Auto) 0.9 % (0.0-2.0) Coagulation Test 03/28/20 05:00 Prothrombin Time 11.7 SEC (9.30-11.50) H Prothromb Time International Ratio 1.1 (0.9-1.1) Activated Partial Thromboplast Time 31 SEC (23-33) Chemistry Test 03/28/20 05:00 Sodium Level 138 MMOL/L (136-145) Potassium Level 4.1 MMOL/L (3.5-5.1) Chloride Level 106 MMOL/L (98-107) Carbon Dioxide Level 23 MMOL/L (21-32) Anion Gap 9 mmol/L (5-15) Blood Urea Nitrogen 3 mg/dL (7-18) L Creatinine 0.8 MG/DL (0.55-1.30) Estimat Glomerular Filtration Rate > 60 mL/min (>60) Glucose Level 124 MG/DL (74-106) H Calcium Level 8.7 MG/DL (8.5-10.1) Total Bilirubin 0.7 MG/DL (0.2-1.0) Aspartate Amino Transf (AST/SGOT) 35 U/L (15-37) Alanine Aminotransferase (ALT/SGPT) 72 U/L (12-78) Alkaline Phosphatase 84 U/L (46-116) Total Protein 7.3 G/DL (6.4-8.2) Albumin 3.0 G/DL (3.4-5.0) L Globulin 4.3 g/dL Albumin/Globulin Ratio 0.7 (1.0-2.7) L Amylase Level 211 U/L (25-115) H Lipase 1148 U/L (73-393) H Urine Test Test 03/28/20 07:00 Urine HCG, Qualitative Negative (NEGATIVE) Risk Assessment & Plan Assessment: ASA 2E Plan: GA, SED, GlideScope Status Change Before Surgery: No Pre-Antibiotics Dru Gram Ancef IV Given Within 1 Hr of Incision: Yes Time Given: 12:46 Renny Wright MD Mar 28, 2020 12:37
[2020-03-28] MEDS ORDERED: fentaNYL 100 mcg/2 mL IV ONE (12:38)
[2020-03-28] MEDS ORDERED: Lidocaine 1% MPF 10mg/ml 5ml ONE (12:38)
[2020-03-28] MEDS ORDERED: Glycopyrrolate 0.2mg/ml 1ml Vial ONE (13:32)
[2020-03-28] MEDS ORDERED: Neostigmine 1mg/ml 10ml Inj ONE (13:32)
--- NOTE | 2020-03-28 13:37 | Immediate Post-Op Evaluation ---
Immediate Post-Op Evalulation Immediate Post-Op Evalulation Procedure: Laparoscopic Cholecystectomy Date of Evaluation: Mar 28, 2020 Time of Evaluation: 14:17 IV Fluids: 300 LR Blood Products: 0 Estimated Blood Loss: 50 Urinary Output: 0 Blood Pressure Systolic: 136 Blood Pressure Diastolic: 83 Pulse Rate: 103 Respiratory Rate: 16 O2 Sat by Pulse Oximetry: 100 Temperature (Fahrenheit): 98.4 Pain Score (1-10): 2 Nausea: No Vomiting: No Complications 0 Patient Status: awake, reacts, patent, extubated, none Hydration Status: adequate Dru Gram Ancef IV Given Within 1 Hr of Incision: Yes Time Given: 12:46 Renny Wright MD Mar 28, 2020 13:37
--- NOTE | 2020-03-28 13:38 | 48 Hour Post Anesthesia Eval ---
Post Anesthesia Evaluation Procedure: Laparoscopic Cholecystectomy Date of Evaluation: Mar 28, 2020 Time of Evaluation: 16:34 Blood Pressure Systolic: 138 0: 74 Pulse Rate: 91 Respiratory Rate: 18 Temperature (Fahrenheit): 98.6 O2 Sat by Pulse Oximetry: 100 Airway: patent Nausea: No Vomiting: No Pain Intensity: 2 Hydration Status: adequate Cardiopulmonary Status: Stable Mental Status/LOC: patient returned to baseline Follow-up Care/Observations: 0 Post-Anesthesia Complications: 0 Follow-up care needed: N/A Renny Wright MD Mar 28, 2020 13:38
--- NOTE | 2020-03-28 14:12 | Brief Operative Note ---
Immediate Post Operative Note Operative Note Pre-op Diagnosis: acute gallstone pancreatitis Procedure: lap arian Post-op Diagnosis: same as pre-op Surgeon: foreign Anesthesiologist: nasir Anesthesia: general, local Specimen: yes Complications: none Condition: stable Fluids: see Estimated Blood Loss: minimal Drains: none Implant(s) used?: No Pedro Luis Owens Mar 28, 2020 14:12
[2020-03-28] MEDS ORDERED: Milk of Magnesia 30ml Ud ORAL PRN (14:15)
[2020-03-28] MEDS ORDERED: Tubing IV Secondary IV ONE (15:23)
--- NOTE | 2020-03-28 16:00 | Operative Note - Dictated ---
DATE OF OPERATION: 03/28/2020 PREOPERATIVE DIAGNOSIS: Acute gallstone pancreatitis. POSTOPERATIVE DIAGNOSIS: Acute gallstone pancreatitis. OPERATION PERFORMED: Laparoscopic cholecystectomy. ATTENDING SURGEON: Pedro Luis Owens MD MANAGER AREA: None. ANESTHESIOLOGIST: Renny Wright MD ANESTHESIA: General SERVICE WORKER plus local. ESTIMATED BLOOD LOSS: Minimal. IV FLUIDS: Please see anesthesia records. COMPLICATIONS: None. DRAINS: None. COUNTS: Sponge and needle count correct x2. WOUND CLASSIFICATION: Class 3. SPECIMENS: Gallbladder contained stones. ANTIBIOTICS: Patient is on scheduled IV antibiotics. INDICATIONS FOR PROCEDURE: This is a 44-year-old female with known history of acute cholecystitis and prior biliary colic and symptomatic cholelithiasis, presented to [facility] with acutely worsening abdominal pain, identified to have severe pancreatitis, and admitted for further care and management. After workup and etiology, pancreatitis was noted to be related to acute gallstone pancreatitis with imaging identifying gallbladder wall thickening, pericholecystic fluid, and consistent with likely acute cholecystitis. Patient had elevated LFTs, T bilirubin, direct bilirubin, and likely passage of a stone as the MRCP was performed and did not identify choledocholithiasis at this time and following labs improved. Patient symptomatically began improving laboratory and clinical data. A long discussion was had with patient in regards to her clinical condition, history, and care plan. Given her prior history and current worsening episodes and significant pancreatitis episode, discussion about cholecystectomy as outpatient. Patient was strongly favored towards cholecystectomy. She stated this was the worst pain episode she has ever had and she could not conceive or contemplate having another one. She is afraid that she may have one in the mean time of trying to potentially have elective surgery. Given these findings, surgery indicated, recommended, and scheduled for 03/28/2020. OPERATIVE NOTE: Patient was taken to the operating room and placed on the operating table in the supine position with bilateral arms out. All bony prominences were well padded. SCDs placed. Preoperative time-out taken to identify the patient, procedure, operative staff, and surgical staff. General anesthesia was induced. Patient was intubated. The abdomen was clipped, prepped, and draped in standard surgical fashion. An infraumbilical incision was made and carried down through the subcutaneous tissue of the fascia and elevated and incised. Entry into the abdomen obtained using open Gonzalo technique without complication. A 12 mm Gonzalo trocar was inserted. The abdomen was insufflated to 12 to 15 mmHg. Patient tolerated the insufflation well. Laparoscope was inserted. The abdomen was inspected. No injury from trocar placement identified. Secondary trocars placed under direct visualization beginning with a 12 mm subxiphoid followed by two 5 mm right subcostal. Patient was placed in reverse Trendelenburg in left side down. Gallbladder was noted to be distended, inflamed, and with edematous tissue throughout the gallbladder, especially including the infundibulum. The gallbladder dome was grasped and retracted over the liver. Infundibulum was identified and fully dissected out. The cystic duct and artery were slowly dissected out and the critical view was obtained. The cystic artery was doubly clipped and divided. Once this completed, the only item entering into the infundibulum was the cystic duct, which was noted to be larger than average consistent with passage of potential stones and the history of acute gallstone pancreatitis. The cystic duct was doubly clipped and divided. The gallbladder was removed from the liver bed using electrocautery. Hemostasis obtained with electrocautery as necessary from the liver bed. The gallbladder was placed in endoscopic retrieval bag and removed from the subxiphoid port. The gallbladder fossa was irrigated and suctioned clean. The clips on the gallbladder, cystic artery, and cystic duct were identified, noted to be in place stable and sufficient without leakage of bile or bleeding. Surgicel was placed in the liver bed. At this time, we began the conclusion of our procedure. Secondary trocars removed under direct visualization followed by the umbilical trocar site. Abdomen was desufflated. Umbilical trocar site fascia and subxiphoid trocar site fascia were reapproximated using [id number] #0 Vicryl sutures. The skin incisions were reapproximated using 4-0 Monocryl subcutaneous interrupted sutures. Dressings were applied. Patient tolerated the procedure well and was extubated and taken to postanesthetic care unit in stable condition. Alfredo Barlow JOB#: [id number] CC:
[2020-03-28] MEDS: Docusate 100mg cap ORAL SCH (18:36)
[2020-03-28] MEDS: Morphine Sulfate 2mg/ml Inj(IV/IM USE ONLY) IVP PRN (18:44)
[2020-03-29] VITALS: BP 119/74
--- NOTE | 2020-03-29 01:12 | Cardiology Progress Note ---
Subjective DATE OF SERVICE: Mar 28, 2020 S/p lap cholecystectomy; no apparent neftali-op complications. No SOB Labs and MRCP reviewed and discussed with consultants Objective Last 24 Hour Vital Signs Date Time Temp Pulse Resp B/P (MAP) Pulse Ox O2 Delivery O2 Flow Rate FiO2 03/29/20 00:00 97.6 79 14 119/74 (89) 96 03/28/20 19:42 Room Air 03/28/20 19:41 98.4 86 16 121/80 (94) 97 03/28/20 17:00 88 16 129/83 (98) 98 03/28/20 16:00 98.8 98 16 129/80 (96) 98 03/28/20 15:05 92 16 132/80 (97) 98 03/28/20 15:00 98.4 89 20 130/78 96 Room Air 03/28/20 14:50 98.4 03/28/20 14:45 88 19 146/89 100 Nasal Cannula 2.0 03/28/20 14:30 86 20 143/83 100 Nasal Cannula 2.0 03/28/20 14:16 90 19 142/87 100 Simple Mask 6.0 03/28/20 14:11 89 18 140/80 100 Simple Mask 6.0 03/28/20 14:06 98.4 103 16 137/79 100 Simple Mask 6.0 03/28/20 14:02 91 18 100 03/28/20 14:01 103 16 100 03/28/20 12:30 98.4 03/28/20 09:00 Room Air 03/28/20 08:00 98.4 77 16 118/73 (88) 98 03/28/20 04:00 98.0 77 18 106/76 (86) 97 HEENT: normal ENT inspection LUNGS: lungs clear bilaterally CARDIAC: regular rhythm ABDOMEN: normal bowel sounds, soft, distended EXTREMITIES: No edema Laboratory Tests Test 03/28/20 05:00 03/28/20 07:00 White Blood Count 7.8 K/UL (4.8-10.8) Red Blood Count 4.13 M/UL (4.20-5.40) L Hemoglobin 13.7 G/DL (12.0-16.0) Hematocrit 40.6 % (37.0-47.0) Mean Corpuscular Volume 98 FL (80-99) Mean Corpuscular Hemoglobin 33.2 PG (27.0-31.0) H Mean Corpuscular Hemoglobin Concent 33.7 G/DL (32.0-36.0) Red Cell Distribution Width 11.5 % (11.6-14.8) L Platelet Count 204 K/UL (150-450) Mean Platelet Volume 9.8 FL (6.5-10.1) Neutrophils (%) (Auto) 57.4 % (45.0-75.0) Lymphocytes (%) (Auto) 29.4 % (20.0-45.0) Monocytes (%) (Auto) 11.3 % (1.0-10.0) H Eosinophils (%) (Auto) 1.0 % (0.0-3.0) Basophils (%) (Auto) 0.9 % (0.0-2.0) Prothrombin Time 11.7 SEC (9.30-11.50) H Prothromb Time International Ratio 1.1 (0.9-1.1) Activated Partial Thromboplast Time 31 SEC (23-33) Sodium Level 138 MMOL/L (136-145) Potassium Level 4.1 MMOL/L (3.5-5.1) Chloride Level 106 MMOL/L (98-107) Carbon Dioxide Level 23 MMOL/L (21-32) Anion Gap 9 mmol/L (5-15) Blood Urea Nitrogen 3 mg/dL (7-18) L Creatinine 0.8 MG/DL (0.55-1.30) Estimat Glomerular Filtration Rate > 60 mL/min (>60) Glucose Level 124 MG/DL (74-106) H Calcium Level 8.7 MG/DL (8.5-10.1) Total Bilirubin 0.7 MG/DL (0.2-1.0) Aspartate Amino Transf (AST/SGOT) 35 U/L (15-37) Alanine Aminotransferase (ALT/SGPT) 72 U/L (12-78) Alkaline Phosphatase 84 U/L (46-116) Total Protein 7.3 G/DL (6.4-8.2) Albumin 3.0 G/DL (3.4-5.0) L Globulin 4.3 g/dL Albumin/Globulin Ratio 0.7 (1.0-2.7) L Amylase Level 211 U/L (25-115) H Lipase 1148 U/L (73-393) H Urine HCG, Qualitative Negative (NEGATIVE) Microbiology Date/Time Source Procedure Growth Status 03/27/20 00:00 Nasopharynx SARS-CoV-2 RdRp Gene Assay - Final Complete Assessment/Plan Assessment/Plan Acute biliary pancreatitis Dehydration/hypovolemia corrected Transaminitis Hyperbilirubinemia Cholelithiasis s/p cholecystectomy Advance diet per surgeon Empiric antibiotics Pain control IVF hydration DVT propyl DC planning to follow Wilman Benjamin MD Mar 29, 2020 01:12
[2020-03-29 04:00] VITALS: BP 125/77
[2020-03-29] MEDS: cefOXitin Sod 1 GM in D5W 55 ML IVPB SCH ×2 (05:15→15:38)
[2020-03-29] MEDS: Heparin 5000 units/ml inj SUBQ SCH ×2 (05:15→14:38)
[2020-03-29 05:29] LABS: BASOPHILS % (AUTO) 0.5 % (0.0-2.0); HEMATOCRIT 42.7 % (37.0-47.0); HEMOGLOBIN 14.2 G/DL (12.0-16.0); LYMPHOCYTES % (AUTO) 15.1 % (20.0-45.0); MEAN CORPUSCULAR VOLUME 98 FL (80-99); MONOCYTES % (AUTO) 5.9 % (1.0-10.0); NEUTROPHILS % (AUTO) 78.5 % (45.0-75.0); PLATELET COUNT 234 K/UL (150-450); RED BLOOD COUNT 4.34 M/UL (4.20-5.40); RED CELL DISTRIBUTION WIDTH 10.9 % (11.6-14.8); WHITE BLOOD COUNT 11.2 K/UL (4.8-10.8)
[2020-03-29 06:56] LABS: ALANINE AMINOTRANSFERASE 87 U/L (12-78); ALBUMIN 3.2 G/DL (3.4-5.0); ALBUMIN/GLOBULIN RATIO 0.7 (1.0-2.7); ALKALINE PHOSPHATASE 97 U/L (46-116); AMYLASE 179 U/L (25-115); ANION GAP 9 mmol/L (5-15); ASPARTATE AMINO TRANSFERASE 39 U/L (15-37); BILIRUBIN,TOTAL 0.5 MG/DL (0.2-1.0); BLOOD UREA NITROGEN 6 mg/dL (7-18); CALCIUM 9.6 MG/DL (8.5-10.1); CARBON DIOXIDE 24 MMOL/L (21-32); CHLORIDE 103 MMOL/L (98-107); CREATININE 0.8 MG/DL (0.55-1.30); POTASSIUM 4.9 MMOL/L (3.5-5.1); SODIUM 136 MMOL/L (136-145)
[2020-03-29 08:00] VITALS: BP 123/76
[2020-03-29] MEDS: Docusate 100mg cap ORAL SCH (08:44)
--- NOTE | 2020-03-29 10:00 | General Progress Note ---
Subjective ROS Limited/Unobtainable: Yes Allergies: Coded Allergies: No Known Allergies (Unverified , 03/24/20) Objective Last 24 Hour Vital Signs Date Time Temp Pulse Resp B/P (MAP) Pulse Ox O2 Delivery O2 Flow Rate FiO2 03/29/20 08:00 98.2 76 16 123/76 (92) 97 03/29/20 04:00 98.0 72 16 125/77 (93) 97 03/29/20 00:00 97.6 79 14 119/74 (89) 96 03/28/20 19:42 Room Air 03/28/20 19:41 98.4 86 16 121/80 (94) 97 03/28/20 17:00 88 16 129/83 (98) 98 03/28/20 16:00 98.8 98 16 129/80 (96) 98 03/28/20 15:05 92 16 132/80 (97) 98 03/28/20 15:00 98.4 89 20 130/78 96 Room Air 03/28/20 14:50 98.4 03/28/20 14:45 88 19 146/89 100 Nasal Cannula 2.0 03/28/20 14:30 86 20 143/83 100 Nasal Cannula 2.0 03/28/20 14:16 90 19 142/87 100 Simple Mask 6.0 03/28/20 14:11 89 18 140/80 100 Simple Mask 6.0 03/28/20 14:06 98.4 103 16 137/79 100 Simple Mask 6.0 03/28/20 14:02 91 18 100 03/28/20 14:01 103 16 100 03/28/20 12:30 98.4 Intake and Output 03/28/20 03/29/20 19:00 07:00 Intake Total 1250 ml 450 ml Balance 1250 ml 450 ml Intake Oral 75 ml 450 ml IV Total 1175 ml # Voids 1 3 Laboratory Tests 03/29/20 04:50: White Blood Count 11.2H, Red Blood Count 4.34, Hemoglobin 14.2, Hematocrit 42.7, Mean Corpuscular Volume 98, Mean Corpuscular Hemoglobin 32.8H, Mean Corpuscular Hemoglobin Concent 33.4, Red Cell Distribution Width 10.9L, Platelet Count 234, Mean Platelet Volume 9.0, Neutrophils (%) (Auto) 78.5H, Lymphocytes (%) (Auto) 15.1L, Monocytes (%) (Auto) 5.9, Eosinophils (%) (Auto) 0.0, Basophils (%) (Auto) 0.5, Sodium Level 136, Potassium Level 4.9, Chloride Level 103, Carbon Dioxide Level 24, Anion Gap 9, Blood Urea Nitrogen 6L, Creatinine 0.8, Estimat Glomerular Filtration Rate > 60, Glucose Level 114H, Calcium Level 9.6, Total Bilirubin 0.5, Aspartate Amino Transf (AST/SGOT) 39H, Alanine Aminotransferase (ALT/SGPT) 87H, Alkaline Phosphatase 97, Total Protein 8.0, Albumin 3.2L, Globulin 4.8, Albumin/Globulin Ratio 0.7L, Amylase Level 179H, Lipase 730H Height (Feet): 4 Height (Inches): 10.00 Weight (Pounds): 139 General Appearance: alert EENT: normal ENT inspection Neck: normal alignment Cardiovascular: normal rate Respiratory/Chest: decreased breath sounds Abdomen: hypoactive bowel sounds, tender Extremities: non-tender Assessment/Plan Assessment/Plan: Assessment - Cholelithiasis - Gallstone pancreatitis - h/o biliary colic s/p cholecystectomy improving labs improving pain passed gas on clears per surg will Wayne Terrazas MD Mar 29, 2020 10:00
[2020-03-29 12:00] VITALS: BP 120/77
[2020-03-29] MEDS: Morphine Sulfate 2mg/ml Inj(IV/IM USE ONLY) IVP PRN (14:37)
--- NOTE | 2020-03-29 15:52 | Surgery Progress Note ---
Surgery Progress Note Subjective Procedure Performed lap arian Symptoms: improved, tolerating diet, voiding well, passing flatus, BM Objective Last 24 Hour Vital Signs Date Time Temp Pulse Resp B/P (MAP) Pulse Ox O2 Delivery O2 Flow Rate FiO2 03/29/20 12:00 97.8 72 16 120/77 (91) 98 03/29/20 09:00 Room Air 03/29/20 08:00 98.2 76 16 123/76 (92) 97 03/29/20 04:00 98.0 72 16 125/77 (93) 97 03/29/20 00:00 97.6 79 14 119/74 (89) 96 03/28/20 19:42 Room Air 03/28/20 19:41 98.4 86 16 121/80 (94) 97 03/28/20 17:00 88 16 129/83 (98) 98 03/28/20 16:00 98.8 98 16 129/80 (96) 98 I&O Intake and Output 03/28/20 03/29/20 19:00 07:00 Intake Total 1250 ml 450 ml Balance 1250 ml 450 ml Intake Oral 75 ml 450 ml IV Total 1175 ml # Voids 1 3 Dressing: dry Wound: clean Cardiovascular: RSR Respiratory: clear Abdomen: soft, non-tender, present bowel sounds Extremities: no edema, no tenderness, no cyanosis Laboratory Tests Test 03/29/20 04:50 White Blood Count 11.2 K/UL (4.8-10.8) H Red Blood Count 4.34 M/UL (4.20-5.40) Hemoglobin 14.2 G/DL (12.0-16.0) Hematocrit 42.7 % (37.0-47.0) Mean Corpuscular Volume 98 FL (80-99) Mean Corpuscular Hemoglobin 32.8 PG (27.0-31.0) H Mean Corpuscular Hemoglobin Concent 33.4 G/DL (32.0-36.0) Red Cell Distribution Width 10.9 % (11.6-14.8) L Platelet Count 234 K/UL (150-450) Mean Platelet Volume 9.0 FL (6.5-10.1) Neutrophils (%) (Auto) 78.5 % (45.0-75.0) H Lymphocytes (%) (Auto) 15.1 % (20.0-45.0) L Monocytes (%) (Auto) 5.9 % (1.0-10.0) Eosinophils (%) (Auto) 0.0 % (0.0-3.0) Basophils (%) (Auto) 0.5 % (0.0-2.0) Sodium Level 136 MMOL/L (136-145) Potassium Level 4.9 MMOL/L (3.5-5.1) Chloride Level 103 MMOL/L (98-107) Carbon Dioxide Level 24 MMOL/L (21-32) Anion Gap 9 mmol/L (5-15) Blood Urea Nitrogen 6 mg/dL (7-18) L Creatinine 0.8 MG/DL (0.55-1.30) Estimat Glomerular Filtration Rate > 60 mL/min (>60) Glucose Level 114 MG/DL (74-106) H Calcium Level 9.6 MG/DL (8.5-10.1) Total Bilirubin 0.5 MG/DL (0.2-1.0) Aspartate Amino Transf (AST/SGOT) 39 U/L (15-37) H Alanine Aminotransferase (ALT/SGPT) 87 U/L (12-78) H Alkaline Phosphatase 97 U/L (46-116) Total Protein 8.0 G/DL (6.4-8.2) Albumin 3.2 G/DL (3.4-5.0) L Globulin 4.8 g/dL Albumin/Globulin Ratio 0.7 (1.0-2.7) L Amylase Level 179 U/L (25-115) H Lipase 730 U/L (73-393) H Plan Problems: (1) Acute pancreatitis Assessment & Plan: 44-year-old female with acute pancreatitis elevated LFTs history of cholelithiasis. Likely acute gallstone pancreatitis. Afebrile hemodynamic stable labs noted. Consideration of possible choledocholithiasis Tender on abdominal examination epigastric region Recommend admission N.p.o. IV fluids IV antibiotics given leukocytosis and potential acute cholecystitis along with acute gallstone pancreatitis Abdominal ultrasound MRCP given elevated bilirubin and LFTs Trend labs May require cholecystectomy labs noted still with pain US reviewed will need MRCP and potentially ERCP GI eval cont bowel rest trend labs Thank you will follow the recommendations mrcp noted labs improved exam improved plan lap arian s/p lap arian d/c home rx written f/u given (2) Leukocytosis (3) Elevated LFTs Pedro Luis Owens Mar 29, 2020 15:52
--- NOTE | 2020-03-29 15:53 | Discharge Instructions ---
Discharge Instructions Discharge Instructions Follow up with: Dr owens 04/05 10AM Diet: regular Resume Normal Activity?: Yes Activity: up ad chuck, light activity For Surgical Patients Dressing Care: keep dry and clean For Congestive Heart Failure Reminder Report to your physician any weight gain of 5 pounds or more in one week. Pedro Luis Owens Mar 29, 2020 15:53
[2020-03-29 16:30] VITALS: BP 115/67
--- NOTE | 2020-03-30 16:55 | Discharge Summary ---
Discharge Summary Discharge Summary _ DATE OF ADMISSION: 03/24/2020 DATE OF DISCHARGE: 03/29/2020 DISCHARGED BY: Dr. Benjamin REASON FOR ADMISSION: 44 years old female with past medical history of gallstones, biliary colic, presented to emergency department with severe right upper quadrant abdominal pain , radiating to her back. Patient reported that she had history of this problem before and it was her gallbladder. She reported nausea and vomiting. Pain reported as 10 out of 10 and constant. She denied fever and chills. Vital signs were stable. Upon evaluation laboratory work-up revealed leukocytosis, hemoglobin 16.7, hematocrit 48.6. Stable electrolytes, except potassium 3.4. Glucose 113. Total bilirubin 1.2, direct bilirubin 0.6. AST 136,, ALT 166 lipase above 2000. Urine and serum test were negative. Urinalysis revealed +1 protein, no evidence of urinary tract infection. Abdominal ultrasound revealed prominent pancreas, peripancreatic free fluid, likely related to evidence of acute pancreatitis. Cholelithiasis and gallbladder sludge. No evidence of dilated bile ducts. In emergency department patient received analgesic,, empiric antibiotic and admitted for further management. CONSULTANTS: [facility] COURSE: Patient admitted to medical surgical floor. Patient started on the IV and was kept n.p.o. Patient was continued on empiric antibiotics. Pain management was addressed. Symptomatic treatment provided as needed. Surgery and GI specialist followed . LFT and bilirubin were monitored. DVT and GI prophylaxis provided. Lipase the next day 8198. Amylase 1729. Total bilirubin up to 3.0 , direct bilirubin 1.9. Patient undergone MRCP , which revealed cholelithiasis, gallbladder wall edema , raising concern for acute cholecystitis. No evidence of dilated bile duct or choledocholithiasis. Distended bladder. Enlarged pancreas with surrounding fluid/phlegmon , presumptively related to stated clinical history of acute pancreatitis. No evidence of pancreatic necrosis of peripancreatic abscess. Empiric antibiotic continued. Antiemetic provided as needed . Patient subsequently undergone laparoscopic cholecystectomy on 03/28. Patient tolerated procedure well. Post surgery patient started on clear liquid diet . Patient was able to tolerate diet. Pain was controlled. LFT and bilirubin followed. Lipase down to 730 from 8198 , amylase down to 179 from 1729. AST 39, ALT 87 , total bilirubin 0.5 and direct bilirubin 0.3. Patient clinically stabilized and was ready for discharge. FINAL DIAGNOSES: Acute gallstone pancreatitis Cholelithiasis Status post laparoscopic cholecystectomy History of biliary colic Transaminitis -improved Hyperbilirubinemia -resolved Dehydration/hypovolemia -corrected DISCHARGE MEDICATIONS: See Medication Reconciliation list. DISCHARGE INSTRUCTIONS: Patient was discharged home. Follow-up with a primary care provider in 1 week. Follow-up with a surgeon as advised. I have been assigned to dictate discharge summary for this account. I was not involved in the patient's management. Amanda Elias NP Mar 30, 2020 16:55
== END 2020-03-29 17:30 | disposition home or self-care (01) | DRG 263 ==
LOC: EMR 11:43 → 3E 14:35 → EDBEDREQ 15:17
PROC: 0FT44ZZ Resection of Gallbladder, Percutaneous Endoscopic Approach (ICD-10-PCS; principal; 2020-03-28 12:00)
DX: K85.10 Biliary acute pancreatitis without necrosis or infection (principal); K80.00 Calculus of gallbladder with acute cholecystitis without obstruction; E87.6 Hypokalemia; E86.1 Hypovolemia; E86.0 Dehydration; R74.01 Elevation of levels of liver transaminase levels
CPT/HCPCS: 36415; 74183; 76700; 80053; 80061; 81003; 81025; 82150; 82248; 83690; 84703; 85025; 85610; 85651; 85730; 86140; 86850; 86900; 86901; 94003; 94150; 96361; 96365; 96367; 96375; 96376; 99285; A9585; J2405; J2710; J2765; J7030; U0002